=== PATIENT | female | born 1940 | race Hispanic/Latino ===

== ENCOUNTER 2019-12-20 13:19 | Outpatient (CLI) | payer OTHER, SELFPAY ==
--- NOTE | 2019-12-24 11:28 | WPDHOLTEREM ---
Holter/Event Monitor Holter/Event Monitor Date of procedure: 12/20/19 Procedure Type: test date 12/20/2019: Analysis date 12/23/2019: Read a 12/24/2019 48 hour Holter monitor Diagnosis: ventricular tachycardia Indications: ventricular tachycardia Image/Tracing Quality: good Finding: A total of 47 hours and 59 minutes were recorded and analyzed. Underlying normal sinus rhythm with heart rate variability between 46 and 88 beats per minute with an average heart rate of 61 beats per minute. First-degree AV block was noted. Intraventricular conduction delay was also seen. Longest RR interval of 2.2 seconds was noted. Frequent ventricular ectopy totaling 9106 beats. this consisted of 62 ventricular couplets, 8540 single PVCs, 8 beats were interpolated, 1 late Caden, 190 beats in a pattern of ventricular bigeminy and 281 beats in a pattern of ventricular trigeminy. It is rare supraventricular ectopy totaling 319 beats. This consisted of 4 atrial runs which totaled 15 beats with the longest run being for 5 beats. There is also 8 atrial couplets and 219 single PACs. No sustained runs of ventricular or supraventricular tachycardia. No atrial fibrillation 5 Dropped beats Four symptom events of rapid heart beat. These all correlated to sinus rhythm. On 2 occasions there was a PVC associated Conclusion: 1. Underlying normal sinus rhythm with average heart rate of 61 beats per minute. 2. First-degree AV block, intraventricular conduction delay noted 3. Frequent ventricular ectopy as detailed above but without sustained or nonsustained runs of ventricular tachycardia. 4. Low frequency supraventricular ectopy 5. four Symptom events correlate to sinus rhythm and on 2 occasions a PVC
== END 2019-12-20 13:20 | disposition home or self-care (01) ==
PROVIDERS: PCP Internal Medicine; Visit Provider Nurse Practitioner
DX: I47.2 Ventricular tachycardia (principal); I44.0 Atrioventricular block, first degree
CPT/HCPCS: 93225; 93226

== ENCOUNTER 2019-12-29 14:38 | Outpatient (CLI) | payer OTHER, SELFPAY ==
--- NOTE | ~2019-12-29 | DEXA_ITS ---
Bone Density Report Name: Kathy Clark Age: 79 Sex: Female Ethnicity: White Date of : 1940 Indication: postmenopausal; height loss; Referring Provider: SHELLY MONTIEL Study: Bone densitometry was performed. Exam Date: December 29, 2019 Accession number: [id number] Bone Density: Region BMD T-score Z-score Classification AP Spine (L1, L3) 1.017 0.0 2.7 Normal Femoral Neck (Left) 0.725 -1.1 1.2 Osteopenia Total Hip (Left) 0.957 0.1 2.2 Normal Total Hip Bilateral Avg 0.958 0.1 2.2 Normal Femoral Neck (Right) 0.743 -1.0 1.4 Normal Total Hip (Right) 0.957 0.1 2.2 Normal World Health Organization criteria for BMD impression classify patients as: Normal (T-score at or above -1.0), Osteopenia (T-score between -1.0 and -2.5), or Osteoporosis (T-score at or below -2.5). 10-year Fracture Risk(1): Major Osteoporotic Fracture 12% Hip Fracture 2.6% Reported Risk Factors: [place] (), Neck BMD=0.725, BMI=25.8 (1) FRAX(R) Version 3.08. Fracture probability calculated for an untreated patient. Fracture probability may be lower if the patient has received treatment. Clinical Information Provided by Patient: Patient maximum height was 62 Menopause Age: 51 No regular weight bearing exercise Drinks caffeinated beverages Onset of menses at age 12 Number of children 2 Impression: The patient has low bone mass, based on the Left Femoral Neck T-score. The patient has an estimated ten-year risk of hip fracture of 2.6% and an estimated ten-year risk of major fracture of 12%, based on the WHO FRAX algorithm. Discussion: BONE DENSITY IS LOW AT ONE OR MORE SKELETAL SITES. This patient's lowest T-score is low at one or more skeletal sites. It meets the World Health Organization's (WHO) criteria for ?low bone mass? (T-score between -1.0 and -2.5). The patient's 10-year risk of fracture as calculated by FRAX is less than the threshold where pharmacological therapy is recommended by the National Osteoporosis Foundation (NOF). However, all treatment decisions require clinical judgment and consideration of individual patient factors, including patient preferences, comorbidities, previous drug use, risk factors not captured in the FRAX model (e.g., frailty, falls, vitamin D deficiency, increased bone turnover, interval significant decline in bone density) and possible under or overestimation of fracture risk by FRAX. The patient should follow a healthful lifestyle (good nutrition with adequate calcium and vitamin D, and appropriate weight-bearing exercise). Follow-Up: Consider repeating this study in 2 to 3 years to reassess this patient's status, or sooner if there is some new clinical indication. Reported by: [facility] on 12/29/2019 3:08:00 PM. Reviewed, dictated and
--- NOTE | ~2019-12-29 | MM_ITS ---
EXAMINATION: MM screening [facility] BI w osito HISTORY: Screening mammogram TECHNIQUE: Craniocaudal and mediolateral oblique 3-D tomosynthesis images were obtained and synthetic 2-D images were generated. CAD analysis was submitted and interpreted. COMPARISON: 12/27/2018, 12/21/2017, 12/10/2016 bilateral digital screening mammogram examinations BREAST PARENCHYMAL COMPOSITION: There are scattered areas of fibroglandular density. FINDINGS: There is no evidence of suspicious mass, calcification, or architectural distortion to sugg est malignancy in either breast. There has been no suspicious interval change. IMPRESSION: 1. No mammographic evidence of malignancy. 2. Recommend routine screening mammography in one year. BI-RADS Category 1: Negative Reviewed, dictated and finalized at location A.
== END 2019-12-29 14:39 | disposition home or self-care (01) ==
LOC: ANHIMG 14:40
PROVIDERS: PCP Internal Medicine; Visit Provider Internal Medicine
DX: Z12.31 Encounter for screening mammogram for malignant neoplasm of breast (principal); Z78.0 Asymptomatic menopausal state; M85.852 Other specified disorders of bone density and structure, left thigh
CPT/HCPCS: 77063; 77067; 77080

== ENCOUNTER → 2021-01-22 14:34 | Outpatient (CLI) | payer OTHER, SELFPAY ==
--- NOTE | ~2021-01-22 | MM_ITS ---
EXAMINATION: MM screening [facility] BI w osito HISTORY: Screening mammogram TECHNIQUE: Craniocaudal and mediolateral oblique 3-D tomosynthesis images were obtained and synthetic 2-D images were generated. CAD analysis was submitted and interpreted. COMPARISON: 12/29/2019, 12/27/2018, 12/21/2017 BREAST PARENCHYMAL COMPOSITION: There are scattered areas of fibroglandular density. FINDINGS: There is no evidence of suspicious mass, calcification, or architectural distortion to sugg est malignancy in either breast. There has been no suspicious interval change. IMPRESSION: 1. No mammographic evidence of malignancy. 2. Recommend routine screening mammography while the patient remains in good health. BI-RADS Category 1: Negative Reviewed, dictated and finalized at location A. IMPRESSION: 1. No mammographic evidence of malignancy. 2. Recommend routine screening mammography while the patient remains in good he alth. BI-RADS Category 1: Negative
== END ==
PROVIDERS: PCP Internal Medicine; Visit Provider Internal Medicine
DX: Z12.31 Encounter for screening mammogram for malignant neoplasm of breast (principal)
CPT/HCPCS: 77063; 77067

== ENCOUNTER 2022-01-16 15:03 | Outpatient (CLI) | payer OTHER, SELFPAY ==
--- NOTE | ~2022-01-16 | US_ITS ---
EXAMINATION: US pelvic complete w TV DATE: 01/16/2022 15:48 INDICATION: Left ovarian cyst TECHNIQUE: Multiple transabdominal and endovaginal sonographic images of the pelvis were obtained. COMPARISON: CT, 01/26/2016 FINDINGS: The uterus measures 4.1 x 3.6 x 3.6 cm. The endometrial complex measures 2 mm. A small amou nt of fluid is present in the endometrial canal. The right ovary measures 1.5 x 1.1 x 1.8 cm. The lef t ovary is difficult to measure. There are adjacent simple cysts of the left ovary which measured 3.2 x 2.2 x 3.1 cm and 4.4 x 5.1 x 3.9 cm There is normal vascular flow in the ovaries. There is no free fluid in the pelvis. IMPRESSION: 1. Simple cysts of the left ovary with slight increase in size since the comparison CT. Given the int erval between examinations and mild change in size, findings are likely benign. 2. Small amount of fluid in the endometrial canal of unclear etiology or significance. Reviewed, dictated and finalized at location B. IMPRESSION: 1. Simple cysts of the left ovary with slight increase in size since the compar akin CT. Given the interval between examinations and mild change in size, findi ngs are likely benign. 2. Small amount of fluid in the endometrial canal of unclear etiology or signif icance.
== END 2022-01-16 15:04 | disposition home or self-care (01) ==
PROVIDERS: PCP Internal Medicine; Visit Provider Internal Medicine
DX: N83.202 Unspecified ovarian cyst, left side (principal)
CPT/HCPCS: 76830; 76856

== ENCOUNTER 2022-03-28 10:38 | Outpatient (CLI) | payer OTHER, SELFPAY ==
--- NOTE | ~2022-03-28 | DEXA_ITS ---
Bone Density Report Name: AYO SMITH Age: 81 Sex: Female Ethnicity: White Date of : 1940 Indication: postmenopausal; screening for osteoporosis; height loss; rheumatoid arthritis; Referring Provider: KASSI HARRISON Study: Bone densitometry was performed. Exam Date: March 28, 2022 Accession number: [id number] Bone Density: Region BMD T-score Z-score Classification AP Spine(L1-L4) 1.109 0.6 3.4 Normal Femoral Neck (Left) 0.780 -0.6 1.8 Normal Total Hip (Left) 0.963 0.2 2.4 Normal Femoral Neck (Right) 0.784 -0.6 1.9 Normal Total Hip (Right) 0.964 0.2 2.4 Normal Total Hip Mean 0.964 0.2 2.4 Normal World Health Organization criteria for BMD impression classify patients as: Normal (T-score at or above -1.0), Osteopenia (T-score between -1.0 and -2.5), or Osteoporosis (T-score at or below -2.5). 10-year Fracture Risk: FRAX not reported because: All T-scores for Spine Total, Hip Total, Femoral Neck at or above -1.0 Previous Exams: Region Exam Age BMD T-score BMD Change BMD Change Date g/cm2 vs Baseline vs Previous Total Hip(Left) 03/28/2022 81 0.963 0.2 0.007 (0.7%) 0.007 (0.7%) 12/29/2019 79 0.957 0.1 Total Hip(Right) 03/28/2022 81 0.964 0.2 0.007 (0.8%) 0.007 (0.8%) 12/29/2019 79 0.957 0.1 *Denotes significance at 95% confidence level, LSC for Total Hip = 0.027 g/cm2 Clinical Information Provided by Patient: Has rheumatoid arthritis Has used the following medications: Vitamin D, Calcium Patient maximum height was 62 Menopause Age: 51 No regular weight bearing exercise Drinks caffeinated beverages Onset of menses at age 12 Number of children 2 Impression: The patient has normal bone mass. No significant bone loss was observed. Discussion: BONE DENSITY IS ABOVE THE MINIMUM DESIRABLE LEVEL AT ALL SKELETAL SITES TESTED. This patient?s bone mineral density is above the minimum desirable level (T-score -1.0 or better) at all sites measured. The patient should follow a healthful lifestyle (good nutrition with adequate calcium and vitamin D, and appropriate weight-bearing exercise). Follow-Up: Consider repeating this study in 5 years or sooner if there is some new clinical indication. Reported by: [facility] on 03/28/2022 11:07:00 AM. Reviewed, dictated and finalized at location [facility]
--- NOTE | ~2022-03-28 | MM_ITS ---
EXAMINATION: MM screening josue BI w osito HISTORY: Screening mammogram TECHNIQUE: Craniocaudal and mediolateral oblique 3-D tomosynthesis images were obtained and synthetic 2-D images were generated. CAD analysis was submitted and interpreted. COMPARISON: 01/22/2021, 12/29/2019, 12/27/2018 bilateral screening mammogram examinations BREAST PARENCHYMAL COMPOSITION: There are scattered areas of fibroglandular density. FINDINGS: Occasional bilateral benign calcifications. There is no evidence of suspicious mass, calcif ication, or architectural distortion to suggest malignancy in either breast. There has been no suspic ious interval change. IMPRESSION: 1. No mammographic evidence of malignancy. 2. Recommend routine screening mammography in one year. BI-RADS Category 1: Negative Reviewed, dictated and finalized at location B.
== END 2022-03-28 10:39 | disposition home or self-care (01) ==
PROVIDERS: PCP Internal Medicine; Visit Provider Nurse Practitioner
DX: Z12.31 Encounter for screening mammogram for malignant neoplasm of breast (principal); Z78.0 Asymptomatic menopausal state
CPT/HCPCS: 77063; 77067; 77080

== ENCOUNTER → 2023-05-13 14:57 | Outpatient (CLI) | payer OTHER, SELFPAY ==
--- NOTE | ~2023-05-13 | MM_ITS ---
EXAMINATION: MM screening [facility] BI w osito HISTORY: Screening mammogram TECHNIQUE: Craniocaudal and mediolateral oblique 3-D tomosynthesis images were obtained and synthetic 2-D images were generated. CAD analysis was submitted and interpreted. COMPARISON: 03/28/2022, 01/22/2021, 12/29/2019 BREAST PARENCHYMAL COMPOSITION: There are scattered areas of fibroglandular density. FINDINGS: No suspicious mass, calcification, or architectural distortion are identified in either radha ast to suggest malignancy. There has been no suspicious interval change. IMPRESSION: 1. No mammographic evidence of malignancy. 2. Recommend routine screening mammography while the patient remains in good health. BI-RADS Category 1: Negative Reviewed, dictated and finalized at location A. IMPRESSION: 1. No mammographic evidence of malignancy. 2. Recommend routine screening mammography while the patient remains in good he alth. BI-RADS Category 1: Negative
== END ==
PROVIDERS: PCP Nurse Practitioner; Visit Provider Nurse Practitioner
DX: Z12.31 Encounter for screening mammogram for malignant neoplasm of breast (principal)
CPT/HCPCS: 77063; 77067

== ENCOUNTER 2023-07-14 17:57 | Observation (INO) | payer OTHER, SELFPAY ==
[2023-07-14] VITALS (17 sets, daily range): BP systolic 130–216; BP diastolic 56–81; PULSE 63–97; RESP 15–30; TEMP 36.1–37.3; O2SAT 92–99; BMI 23.8
--- NOTE | ~2023-07-14 | XR_ITS ---
EXAMINATION: XR chest 1V portable DATE: 07/14/2023 20:08 INDICATION: Cough. TECHNIQUE: A single frontal view of the chest was obtained. COMPARISON: Chest 2 views 11/23/2013 FINDINGS: Calcified right lung nodules and calcified right hilar lymph nodes are consistent with old granulomatous disease. No pleural effusion or pneumothorax. Cardiomegaly is noted. Median sternotomy wires are noted. There is a large sliding hiatal hernia. IMPRESSION: 1. Cardiomegaly. 2. Large sliding hiatal hernia. Reviewed, dictated and finalized at location E. E OFFICER
--- NOTE | 2023-07-14 19:09 | ECG_ITS ---
Measurements Intervals [place] Rate: 82 P: -32 SD: 317 QRS: 13 QRSD: 137 T: 32 QT: 398 QTc: 467 Interpretive Statements SINUS RHYTHM WITH MARKED FIRST DEGREE AV BLOCK RIGHT BUNDLE BRANCH BLOCK POSSIBLE LEFT VENTRICULAR HYPERTROPHY ABNORMAL ECG NO PREVIOUS ECG AVAILABLE FOR COMPARISON Electronically Signed On 07-15-2023 6:43:46 CHAIN OFFBEARER by Musa Cosby D.O.
--- NOTE | 2023-07-14 19:35 | ED.NAVMDI ---
HPI - Nausea/Vomiting/Diarrhea General Chief complaint: Nausea/Vomiting/Diarrhea <Carole Pina PA-C - Last Filed: 07/14/23 22:02> Stated complaint: n/v <Carole Pina PA-C - Last Filed: 07/14/23 22:02> Time Seen by Provider: 07/14/23 18:29 <Caroel Pina PA-C - Last Filed: 07/14/23 22:02> History of Present Illness HPI Narrative: 82-year-old female with history of hypertension, s/p aortic valve replacement, BOBBY who has not been noncompliant with CPAP, GERD, paroxysmal SVT follows with Dr. Shetty reports for evaluation for nausea and vomiting that started today. Patient states she developed cough and headache yesterday and went to [facility] care yesterday and tested positive for COVID. She was discharged home with Paxlovid and states she took her first dose today. Shortly after she began having nausea and multiple episodes of emesis. She also states that she fell out of her bed earlier today because she tried to stand up and felt lightheaded. She states she landed on her buttock. She did not hit her head or lose consciousness. She is denying injury from the fall including neck pain or back pain, hip or joint pain. The patient states that she also developed left-sided chest pain earlier which resolved after few hours. She does state that it radiated to her neck. She reports that she frequently gets chest pain that presents just like this daily when she tries to go to sleep. She is unsure the cause. States that the pain started while she was trying to take a nap earlier today. She denies aggravating or alleviating factors. Denies history of prior SC, hyperlipidemia, diabetes. She does report that your father the history of cardiac disease. She is not a smoker. Patient denies abdominal pain, dysuria or hematuria, shortness of breath, current chest pain, palpitations, syncope, fever, lower extremity edema. <Carole Pina PA-C - Last Filed: 07/14/23 22:02> Related Data Home medications: Home Medications Medication Instructions Recorded Confirmed metoprolol succinate 50 mg 50 mg PO DAILY 12/15/19 02/24/23 tablet,extended release 24 hr trazodone 50 mg tablet 50 mg PO DAILY 12/15/19 02/24/23 losartan 100 mg tablet 100 mg PO DAILY 06/27/21 02/24/23 escitalopram oxalate 10 mg tablet 20 mg PO DAILY 08/14/22 02/24/23 <Carole Pina PA-C - Last Filed: 07/14/23 22:02> Allergies/Adverse reactions: Allergies Allergy/AdvReac Type Severity Reaction Status Date / Time No Known Allergies Allergy Verified 02/24/23 14:10 <Carole Pina PA-C - Last Filed: 07/14/23 22:02> Review of Systems Review of Systems: CONSTITUTIONAL: Denies fever, chills, or sweats. EYES: Denies visual changes, redness, or discharge. ENT: See HPI CARDIOVASCULAR: See HPI RESPIRATORY: Denies cough or dyspnea. GASTROINTESTINAL: See HPI GENITOURINARY: Denies dysuria or hematuria. SKIN: Denies rash or itching. MUSCULOSKELETAL: Denies back pain, joint pain, or myalgia. NEUROLOGIC: Denies headache, numbness, or weakness. PSYCHIATRIC: Denies anxiety or depression. <Carole Pina PA-C - Last Filed: 07/14/23 22:02> [facility] Past Medical History Medical History: Medical History Heart palpitations Screening for breast cancer Screening for cardiovascular condition Screening for osteoporosis <Carole Pina PA-C - Last Filed: 07/14/23 22:02> Family History Family History: Family History Sibling Family history of Alzheimer's disease Diabetes mellitus Family history of diabetes mellitus in first degree relative Patient's sister is in good health Mother Carcinoma of colon Family history of malignant neoplasm Patient's mother is Father Acute myocardial infarction Patient's father is Other Depression
[2023-07-14] MEDS: ONDANSETRON INJ 4 MG/2 ML VIAL IV PUSH (19:40)
[2023-07-14] MEDS: SODIUM CHLORIDE 0.9% IV 1,000 ML 999 ML IV CONT (19:40)
[2023-07-14 20:05] LABS: Basophils Absolute Auto 0.1 K/mm3 (0.0-0.1); Basophils Percent Auto 0.6 % (0.2-1.2); Hematocrit 40.8 % (37.0-47.0); Hemoglobin 13.2 g/dL (12.0-15.0); Immature Granulocyte Absolute 0.03 K/mm3 (0.00-0.031); Immature Granulocyte Percent A 0.3 % (0-0.5); Lymphocytes Absolute Auto 0.46 K/mm3 (0.9-3.2); Lymphocytes Percent Auto 4.8 % (18.3-44.2); Mean Corpuscular HGB Conc 32.4 g/dl (32-36); Mean Corpuscular Hemoglobin 30.6 pg (26-34); Mean Corpuscular Volume 94.4 fl (80-100); Mean Platelet Volume 10.3 fl (7.4-10.4); Monocytes Absolute Auto 0.6 K/mm3 (0.1-0.6); Monocytes Percent Auto 5.9 % (2.6-8.5); Neutrophils Absolute Auto 8.4 K/mm3 (1.3-6.7); Neutrophils Percent Auto 88.4 % (45.5-73.1); Platelet Count Result 247 k/mm3 (150-375); Red Blood Count 4.32 M/mm3 (4.2-5.4); Red Cell Distribution Width 15.1 % (11.5-14.5); White Blood Count 9.5 K/mm3 (4.5-10.0)
[2023-07-14 20:08] LABS: INR 1.1; Prothrombin Time 14.5 Seconds (11.1-14.7)
[2023-07-14 20:09] LABS: Partial Thromboplastin Time 29.7 SECONDS (22.3-36.8)
[2023-07-14 20:11] LABS: Alanine Aminotransferase 85 U/L (6-35); Albumin Level 4.2 g/dL (3.5-5.1); Alkaline Phosphatase 142 U/L (38-126); Anion Gap 6 mmol/L (8-16); Aspartate Amino Transferase 95 U/L (14-36); Bilirubin,Total 0.7 mg/dL (0.2-1.3); Blood Urea Nitrogen 17 mg/dL (7-17); Carbon Dioxide 29 mmol/L (22-30); Chloride 98 mmol/L (98-107); Estimated CRCL calculation 39 ml/min; Estimated Glomerular Filt Rate > 60; Glucose 143 mg/dL (65-110); Lipase 92 U/L (23-300); Potassium 4.1 mmol/L (3.4-5.0); Sodium 133 mmol/L (137-145)
[2023-07-14 20:29] LABS: NT Pro B Type Natriuretic Pept 4460 pg/mL (19.9-100); Troponin I 0.038 ng/mL (0.000-0.034)
--- NOTE | 2023-07-14 20:42 | PC.NURSE ---
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 When asked why patient stated I don't know why . EDP ESTEE Lam notified.
[2023-07-14 20:44] LABS: Influenza A QL RT-PCR Negative (Negative); Influenza B QL RT-PCR Negative (Negative); RSV RNA, RT-PCR Negative (Negative); SARS-CoV-2 RNA PCR Positive (Negative)
--- NOTE | 2023-07-14 20:55 | PC.NURSE ---
Per EDP ESTEE Lam patient is okay to take 324mg chewable aspirin after speaking with the patient.
[2023-07-14 20:57] LABS: Appearance Urine Cloudy (Clear); Bacteria Urine None Seen /hpf; Bilirubin Urine Negative (Negative); Color Urine Yellow (Yellow); Glucose Urine UA Negative (Negative); Ketones Urine Trace mg/dL (Negative); Leukocyte Esterase Ur Negative LEU/UL (Negative); Nitrate Urine Negative (Negative); Non Pathogenic Casts 0-2; Protein Urine 2+ mg/dL (Negative); Specific Grav Ur 1.016 (1.001-1.035); Squamous Epithelial Cell Urine None seen /hpf (Few); WBC Urine 0-5 /hpf; pH Urine 6.5 (5.0-9.0)
[2023-07-14] MEDS: ASPIRIN 81 MG CHEWABLE TABLET 324 MG PO (20:57)
[2023-07-14 21:08] LABS: Magnesium 1.9 mg/dL (1.6-2.3)
[2023-07-14 21:08] LABS: Add Urine Microscopic? YES
--- NOTE | 2023-07-14 22:32 | ECG_ITS ---
Measurements Intervals [place] Rate: 68 P: -44 AR: 329 QRS: 1 QRSD: 138 T: 32 QT: 461 QTc: 492 Interpretive Statements SINUS RHYTHM WITH MARKED FIRST DEGREE AV BLOCK RIGHT BUNDLE BRANCH BLOCK LEFT VENTRICULAR HYPERTROPHY AND ST-T CHANGE ABNORMAL ECG COMPARED TO ECG 07/14/2023 19:35:54 NO SIGNIFICANT CHANGES Electronically Signed On 07-15-2023 6:49:57 STATISTICAL ENGINEER by Musa Cosby D.O.
--- NOTE | 2023-07-14 23:16 | PM.IMHP ---
H&P: HPI History of Present Illness Date/Time: 07/14/23 23:16 Chief Complaint: Patient brought to the ER for evaluation of her nausea and vomiting Narrative: 82 years old female with chronic medical issues brought to the ER for evaluation for nausea and vomiting. She developed cough and headache yesterday, went to the urgent care and diagnosed with COVID-19 and discharged home on Paxlovid. She took her 1st dose today and shortly after that she started having nausea with multiple episodes of vomiting. She felt lightheaded and went fell out of the bed earlier today. She did not hit her head or lose consciousness. She came to the ER for evaluation, workup was done which showed adequate oxygenation with O2 sats 95% on room air. She had some minimally elevated liver enzymes. COVID test was positive. She has minimally elevated cardiac enzymes 0.038, 0.050 and 0.038 which are flat. She denies any chest pain. She has been treated symptomatically and being placed under observation for close monitoring and medical management. Review of Systems Review of Systems: 14 systems were reviewed with pertinent positives and negatives per HPI. Except as documented in the HPI/progress notes, all other systems were reviewed and are negative. All systems reviewed & are unremarkable except as noted in HPI and below PMFSH Past Medical History Medical History Heart palpitations Screening for breast cancer Screening for cardiovascular condition Screening for osteoporosis Family History Family History Sibling Family history of Alzheimer's disease Diabetes mellitus Family history of diabetes mellitus in first degree relative Patient's sister is in good health Mother Carcinoma of colon Family history of malignant neoplasm Patient's mother is Father Acute myocardial infarction Patient's father is Other Depression Social History Social History Smoking status: Never smoker Second hand tobacco smoke exposure: No Alcohol intake: never Substance use: never Substance use type: does not use Do You Feel Safe in your Home?: Yes Lack of Transportation: No Lack of Food: Never True Current Housing: I Have Housing Concerned About Future Housing: No Difficulty Paying Gas/Electric Bills: No Difficulty Paying for Meds: No Currently Unemployed: No Education: High School Diploma/GED Difficulty w/ Childcare or Family Care: No Spiritual care concerns: No Meds Home Medications and Allergies Home Medications Medication Instructions Recorded Confirmed Type metoprolol succinate 50 mg 50 mg PO DAILY 12/15/19 07/15/23 History tablet,extended release 24 hr trazodone 50 mg tablet 50 mg PO HS PRN Sleep 12/15/19 07/15/23 History losartan 100 mg tablet 100 mg PO DAILY 06/27/21 07/15/23 History escitalopram oxalate 10 mg tablet 20 mg PO DAILY 08/14/22 07/15/23 History omeprazole 20 mg capsule,delayed See Rx Instructions .Route 03/16/23 07/15/23 Rx release .COMPLEX #90 caps Allergies Allergy/AdvReac Type Severity Reaction Status Date / Time No Known Allergies Allergy Verified 02/24/23 14:10 Vital Signs Vital Signs - 24 hr 07/14/23 18:02 07/14/23 18:18 07/14/23 18:19 Temperature 37.3 C Pulse Rate 97 93 Respiratory Rate 18 30 H Blood Pressure 169/67 H 216/81 H Pulse Oximetry 95 93 92 07/14/23 18:20 07/14/23 18:30 07/14/23 18:31 Temperature Pulse Rate 90 90 Respiratory Rate 26 H 30 H Blood Pressure 185/73 H Pulse Oximetry 93 93 92 07/14/23 18:45 07/14/23 18:46 07/14/23 19:00 Temperature Pulse Rate 90 87 88 Respiratory Rate 27 H 26 H 20 Blood Pressure 184/69 H Pulse Oximetry 92 92 94 07/14/23 19:01 07/14/23 20:08 07/14/23 21:08 Temperature 36.8 C Pulse Rate 95 78 87 R
--- NOTE | 2023-07-14 23:45 | ADMGEN ---
This patient, Kathy Clark, was admitted to IMU Room 204-01 at 2340. Patient/family oriented to hospital policies and general routines including ID bracelet, bed and alarms, visiting hours, pain management, procedures, bathroom and other care routines, personal items, smoking policy, room service/diet, and visiting hours. Information on how to activate the Rapid Response Team has been discussed. Patient/Family are encouraged to report perceived risks to care and to ask questions if they do not understand what they are told or what they should do.
[2023-07-15] VITALS (10 sets, daily range): BP systolic 149–163; BP diastolic 44–82; PULSE 52–74; RESP 15–18; TEMP 36.4–36.7; O2SAT 97–98
[2023-07-15 02:59] LABS: Troponin I 0.038 ng/mL (0.000-0.034)
[2023-07-15 07:21] LABS: Alanine Aminotransferase 69 U/L (6-35); Albumin Level 3.1 g/dL (3.5-5.1); Alkaline Phosphatase 111 U/L (38-126); Anion Gap 5 mmol/L (8-16); Aspartate Amino Transferase 65 U/L (14-36); Bilirubin,Total 0.4 mg/dL (0.2-1.3); Blood Urea Nitrogen 16 mg/dL (7-17); Calcium 8.2 mg/dL (8.4-10.2); Carbon Dioxide 26 mmol/L (22-30); Chloride 104 mmol/L (98-107); Estimated CRCL calculation 39 ml/min; Estimated Glomerular Filt Rate > 60; Glucose 115 mg/dL (65-110); Magnesium 1.9 mg/dL (1.6-2.3); Phosphorus 3.2 mg/dL (2.5-4.5); Potassium 4.3 mmol/L (3.4-5.0); Sodium 135 mmol/L (137-145)
[2023-07-15] MEDS: ESCITALOPRAM OXALATE 10 MG TABLET 20 MG PO (08:45)
[2023-07-15] MEDS: ASCORBIC ACID 500 MG TABLET PO (08:45)
[2023-07-15] MEDS: METOPROLOL SUCCINATE EXT REL 50 MG TABCR PO (08:45)
[2023-07-15] MEDS: THERAPEUTIC MULTIVITAMINS/MINERALS TAB (*BKC) 1 TABLET PO (08:45)
[2023-07-15] MEDS: CHOLECALCIFEROL 1,000 UNITS TABLET 1000 UNITS PO (08:45)
[2023-07-15] MEDS: LOSARTAN POTASSIUM 100 MG TABLET PO (08:45)
[2023-07-15] MEDS: ZINC SULFATE 220 MG CAPSULE PO (08:45)
[2023-07-15] MEDS: ENOXAPARIN 40 MG/0.4 ML SYRINGE SUB-Q (10:14)
--- NOTE | 2023-07-15 11:43 | PM.IMPN ---
Progress Note: A&P Assessment and Plan (1) COVID-19: Code(s): U07.1 - COVID-19 Status: Acute (2) Elevated troponin: Code(s): R79.89 - Other specified abnormal findings of blood chemistry Status: Acute (3) Transaminitis: Code(s): R74.01 - Elevation of levels of liver transaminase levels Status: Acute (4) BOBBY on CPAP: Code(s): G47.33 - Obstructive sleep apnea (adult) (pediatric); Z99.89 - Dependence on other enabling machines and devices Status: Acute (5) S/P aortic valve replacement with bioprosthetic valve: Code(s): Z95.3 - Presence of xenogenic heart valve Status: Acute (6) Gastroesophageal reflux disease without esophagitis: Code(s): K21.9 - Gastro-esophageal reflux disease without esophagitis Status: Acute (7) Essential (primary) hypertension: Onset Date: 04/12/19 Code(s): I10 - Essential (primary) hypertension Status: Acute Assessment and Plan: - continue Cardiac tele monitoring - continue COVID-19 isolation precautions -s/s nausea and vomiting have resolved was more likely to be caused by pharmacological effect of Paxlovid, continue to hold Paxlovid -Patient is clinically stable and not requiring oxygen hence do not qualify for dexamethasone or remdesivir -continue supplemental treatment with daily multivitamin, zinc, vitamin-C and vitamin-D -Patient s/p 1 L of IV hydration with normal saline in the ER -Patient has minimally elevated flat troponin levels which is likely due to myocardial demand ischemia caused by COVID 19 -EKGs reviewed from the ER which showed nonspecific STT wave changes -order troponin I level in a.m. - cardiology consulted -Monitor LFTs closely as outpatient Patient may be discharged with self quarantine instructions for 10 days, if she remains medically stable and her symptoms resolve after holding the Paxlovid. Subjective Date/time seen: 07/15/23 11:43 Interval history: Patient brought to the ER for evaluation of her nausea and vomiting Narrative: 82 years old female with chronic medical issues brought to the ER for evaluation for nausea and vomiting.? She developed cough and headache yesterday, went to the urgent care and diagnosed with COVID-19 and discharged home on Paxlovid.? She took her 1st dose today and shortly after that she started having nausea with multiple episodes of vomiting.? She felt lightheaded and went fell out of the bed earlier today.? She did not hit her head or lose consciousness.? She came to the ER for evaluation, workup was done which showed adequate oxygenation with O2 sats 95% on room air.? She had some minimally elevated liver enzymes.? COVID test was positive.? She has minimally elevated cardiac enzymes 0.038, 0.050 and 0.038 which are flat.? She denies any chest pain.? She has been treated symptomatically and being placed under observation for close monitoring and medical management. 07/15/2022: pt seen this a.m. she is in bed eating her breakfast, in no acute distress. She denies any events since her admission. She denies any sob, fever, chills, n/v. Pt states she continues to have ongoing weakness since she attempted to get out of bed at her home suffering a fall out of bed. She denies any loc or headache at this time. Review of Systems Review of Systems: 14 systems were reviewed with pertinent positives and negatives per HPI. Except as documented in the HPI/progress notes, all other systems were reviewed and are negative. All systems reviewed & are unremarkable except as noted in HPI and below Exam Narrative: PHYSICAL EXAMINATION: Vital signs: Please see the chart General physical exam: Patient lying in bed, pleasant and cooperative, appears to be tired and fatigued Head/eyes: Atraumatic, EOMI, PERRLA ENT: Moist mucous membranes, nasal passages clear Neck: Supple, full range of motion, trachea midline CVS: S1 + S2, regular rate and rhythm, no murmurs Respir
--- NOTE | 2023-07-15 12:17 | PM.CNCAR ---
Assessment and Plan Assessment and plan (1) COVID-19: Code(s): U07.1 - COVID-19 Status: Acute Assessment and Plan: Management as per primary team. (2) Elevated troponin: Code(s): R79.89 - Other specified abnormal findings of blood chemistry Status: Acute Assessment and Plan: Troponins are minimally elevated and flat. EKG without ischemic changes. Patient reports intermittent atypical likely noncardiac chest pain. Patient does mention occasional chest pain that occurs under her left breast at night when she is trying to sleep. Lasts for a few minutes and then self resolves. Gets worse if she lays on her side, but better when laying flat on back. No chest pain with exertion. Troponin elevation likely from demand ischemia, no evidence of acute coronary syndrome. No further workup indicated at this time. (3) Nausea & vomiting: Qualifiers: Vomiting type: unspecified Qualified Code(s): R11.2 - Nausea with vomiting, unspecified Code(s): R11.2 - Nausea with vomiting, unspecified Status: Acute Assessment and Plan: Likely side effect from Paxlovid, feels better since holding it and her nausea and vomiting have resolved. Plan Okay to discharge home from a cardiology standpoint. Outpatient follow up with Dr. Shetty. History of Present Illness History of Present Illness Consult date/time: 07/15/23 12:17 Requesting physician: Carole Pina PA-C Consult reason: Other (Elevated troponin) Reason For Visit: COVID, Elevated Troponin, Nausea and Vomiting Narrative: We are consulted for elevated troponin. This is an 82 year old female who follows with Dr. Shetty. She underwent Ross procedure in 1992 for treatment of aortic valve regurgitation. She has a history of problematic PVCs in the past, was on Sotalol but that discontinued because of prolonged QT intervals. At last visit in January 2023, she was doing well and has no active cardiac issues. She had an echocardiogram done prior to her visit that showed LVEF 50%, mild MR, and trivial AR. Patient presented to [facility] for evaluation of nausea and vomiting that started after taking Paxlovoid her COVID. Found to have initial elevated troponin at 0.038. EKG with sinus rhythm, RBBB, first degree AVB. COVID test positive here. Patient does mention occasional chest pain that occurs under her left breast at night when she is trying to sleep. Lasts for a few minutes and then self resolves. Gets worse if she lays on her side, but better when laying flat on back. No chest pain with exertion. She states she is feeling great this morning. Review of Systems Review of Systems: All systems reviewed & are unremarkable except as noted in HPI and below (HPI) [facility] Past Medical History Medical History Heart palpitations Screening for breast cancer Screening for cardiovascular condition Screening for osteoporosis Family History Family History Sibling Family history of Alzheimer's disease Diabetes mellitus Family history of diabetes mellitus in first degree relative Patient's sister is in good health Mother Carcinoma of colon Family history of malignant neoplasm Patient's mother is Father Acute myocardial infarction Patient's father is Other Depression Social History Social History Smoking status: Never smoker Second hand tobacco smoke exposure: No Alcohol intake: never Substance use: never Substance use type: does not use Do You Feel Safe in your Home?: Yes Lack of Transportation: No Lack of Food: Never True Current Housing: I Have Housing Concerned About Future Housing: No Difficulty Paying Gas/Electric Bills: No Difficulty Paying for Meds: No Currently Unemployed: No Education: [employer]
[2023-07-15 12:40] LABS: Glucose Point of Care 163 mg/dl (65-105)
--- NOTE | 2023-07-15 15:30 | PM.DS ---
DS: Admitting Diagnosis Discharge Date 07/15/2023 Admitting Diagnosis generalized weakness COVID 19 DS: Summary Hospital Course Reason for hospitalization: Patient brought to the ER for evaluation of her nausea and vomiting Hospital Course: 82 years old female with chronic medical issues brought to the ER for evaluation for nausea and vomiting.? She developed cough and headache yesterday, went to the urgent care and diagnosed with COVID-19 and discharged home on Paxlovid.? She took her 1st dose today and shortly after that she started having nausea with multiple episodes of vomiting.? She felt lightheaded and went fell out of the bed earlier today.? She did not hit her head or lose consciousness.? She came to the ER for evaluation, workup was done which showed adequate oxygenation with O2 sats 95% on room air.? She had some minimally elevated liver enzymes.? COVID test was positive.? She has minimally elevated cardiac enzymes 0.038, 0.050 and 0.038 which are flat.? She denies any chest pain.? She has been treated symptomatically and being placed under observation for close monitoring and medical management. Interval Hx: 07/15/2022:?pt seen this a.m. she is in bed eating her breakfast, in no acute distress. She denies any events since her admission. She denies any sob, fever, chills, n/v. Pt states she continues to have ongoing weakness since she attempted to get out of bed at her home suffering a fall out of bed. She denies any loc or headache at this time. Cardiology was consulted please see assessment and plan below: Consult date/time: 07/15/23? 12:17 Requesting physician: Carole Pina PA-C Consult reason: Other (Elevated troponin) Reason For Visit: COVID, Elevated Troponin, Nausea and Vomiting Narrative: We are consulted for elevated troponin. This is an 82 year old female who follows with Dr. Shetty. She underwent Ross procedure in 1992 for treatment of aortic valve regurgitation. She has a history of problematic PVCs in the past, was on Sotalol but that discontinued because of prolonged QT intervals. At last visit in January 2023, she was doing well and has no active cardiac issues. She had an echocardiogram done prior to her visit that showed LVEF 50%, mild MR, and trivial AR. Patient presented to [facility] ER for evaluation of nausea and vomiting that started after taking Paxlovoid her COVID. Found to have initial elevated troponin at 0.038. EKG with sinus rhythm, RBBB, first degree AVB. COVID test positive here. Patient does mention occasional chest pain that occurs under her left breast at night when she is trying to sleep. Lasts for a few minutes and then self resolves. Gets worse if she lays on her side, but better when laying flat on back. No chest pain with exertion. Time Spent with Patient Time attestation: Total time spent providing and/or coordinating discharge services: Exam Narrative: PHYSICAL EXAMINATION: Vital signs: Please see the chart General physical exam: Patient lying in bed, pleasant and cooperative, appears to be tired and fatigued Head/eyes: Atraumatic, EOMI, PERRLA ENT: Moist mucous membranes, nasal passages clear Neck: Supple, full range of motion, trachea midline CVS: S1 + S2, regular rate and rhythm, no murmurs Respiratory: Bilaterally fair air entry in both lung fisher, mild B/L crackles, symmetric chest expansion, + mild scattered rhonchi Abdomen: Soft, non-tender, bowel sounds +ve, no organomegaly Extremities: No clubbing, no cyanosis, no edema, no calf tenderness Musculoskeletal: Moves all, adequate range of motion, no muscle spasms Skin: Warm, dry, no jaundice, no cyanosis Neurological: Awake, alert, oriented x 3, cranial nerves II-XII intact, no focal neurological deficits Psychiatric: Normal mood, non suicidal DS: Data Data Completed and Pending Labs on day of discharge: Labs from last 24 hours 07/15/23 07/15/23 07/14/23 12:23 02:29 22:23 WBC RBC Hgb Hct MCV MCH
== END 2023-07-15 15:58 | disposition home or self-care (01) ==
LOC: ANHED 21:58 → ANHIMU 23:46
PROVIDERS: Admitting Provider Family Medicine; Emergency Provider Physician Assistant; PCP Nurse Practitioner; Visit Provider Nurse Practitioner
DX: U07.1 COVID-19 (principal); R79.89 Other specified abnormal findings of blood chemistry; R74.01 Elevation of levels of liver transaminase levels; E55.9 Vitamin D deficiency, unspecified; Z95.3 Presence of xenogenic heart valve; G47.33 Obstructive sleep apnea (adult) (pediatric); R07.9 Chest pain, unspecified; Z99.89 Dependence on other enabling machines and devices; Z91.199 Patient's noncompliance with other medical treatment and regimen due to unspecified reason; F42.9 Obsessive-compulsive disorder, unspecified; K21.9 Gastro-esophageal reflux disease without esophagitis; I10 Essential (primary) hypertension; F41.8 Other specified anxiety disorders; R32 Unspecified urinary incontinence; I47.19 Other supraventricular tachycardia; K44.9 Diaphragmatic hernia without obstruction or gangrene; R42 Dizziness and giddiness; W06.XXXA Fall from bed, initial encounter; Z79.899 Other long term (current) drug therapy; R94.31 Abnormal electrocardiogram [ECG] [EKG]; Z82.49 Family history of ischemic heart disease and other diseases of the circulatory system
CPT/HCPCS: 36415; 71045; 80053; 81001; 82948; 83690; 83735; 83880; 84100; 84484; 85025; 85610; 85730; 87637; 93005; 96361; 96374; 99285; A9270; G0378; J1650; J2405; J7030

== ENCOUNTER 2023-09-03 10:36 | Outpatient (CLI) | payer OTHER, SELFPAY ==
--- NOTE | ~2023-09-03 | US_ITS ---
EXAMINATION: US pelvic complete w TV DATE: 09/03/2023 12:15 INDICATION: History of left ovarian cysts TECHNIQUE: Multiple transabdominal and endovaginal sonographic images of the pelvis were obtained. COMPARISON: 01/16/2022 FINDINGS: The uterus measures 6.3 x 2.6 x 4.3 cm. The endometrial complex measures 4 mm. A small amou nt of fluid is again noted in the endometrial canal. The right ovary measures 1.9 x 1.5 x 2.6 cm. The left ovary measures 2.0 x 1.5 x 1.5 cm and contains a 2.4 cm simple cyst.. There is normal vascular flow in the ovaries. There is no free fluid in the pelvis. IMPRESSION: 1. Simple cyst of the left ovary with interval decrease in size, most consistent with a benign findin g. Reviewed, dictated and finalized at location B. NESS PROCESS REPRESENTATIVE IMPRESSION: 1. Simple cyst of the left ovary with interval decrease in size, most consisten t with a benign finding.
== END 2023-09-03 10:37 | disposition home or self-care (01) ==
PROVIDERS: PCP Nurse Practitioner; Visit Provider Nurse Practitioner
DX: N83.202 Unspecified ovarian cyst, left side (principal)
CPT/HCPCS: 76830; 76856

== ENCOUNTER 2024-09-20 16:13 | Outpatient (CLI) | payer OTHER, SELFPAY ==
[2024-09-20 16:51] LABS: Alanine Aminotransferase 16 U/L (6-35); Albumin Level 4.1 g/dL (3.5-5.1); Alkaline Phosphatase 75 U/L (38-126); Anion Gap 8 mmol/L (4-12); Aspartate Amino Transferase 28 U/L (14-36); Bilirubin,Total 0.5 mg/dL (0.2-1.3); Blood Urea Nitrogen 27 mg/dL (7-17); Calcium 9.1 mg/dL (8.4-10.2); Carbon Dioxide 26 mmol/L (22-30); Chloride 104 mmol/L (98-107); Estimated Glomerular Filt Rate 56; Glucose 83 mg/dL (65-110); Potassium 4.3 mmol/L (3.4-5.0); Sodium 138 mmol/L (137-145)
[2024-09-20 17:27] LABS: Vitamin D 25 Hydroxy 53.8 ng/mL
--- OUTSIDE RECORDS SUMMARY | 2024-09-20 17:47 | XMS_ITS | Referral Summary ---
Author Organization [facility] [address] Address [address] [place] [address] Care Team Providers Care Hand Fabric Cutter Name Role Phone Marshall Mejia NP Primary Care Provider Allergies No known active allergies Medications traZODone (DESYREL) 50 mg tablet Take 1 tablet (50 mg total) by mouth daily 06/08/2018 Active cholecalciferol (VITAMIN D-3) 2000 unit tablet Act jamee metoprolol XL (TOPROL-XL) 50 mg extended release tablet TAKE 1 TABLET BY MOUTH EVERY DAY 90 tablet 2 05/19/2024 Active losartan (COZAAR) 100 mg tablet TAKE 1 TABLET BY MOUTH EVERY DAY 90 tablet 2 06/05/2024 Active escitalopram (LEXAPRO) 20 mg tablet Take 1 tablet (20 mg total) by mouth daily 05/14/2024 Active red beet root-sour dave ext 250-0.5 mg tablet,chewable Take by mouth Active Active Problems Problem Noted Date Diagnosed Date BOBBY (obstructive sleep apnea) 07/18/2019 History of Ross procedure 07/18/2019 Moderate aortic valve regurgitation 07/18/2019 Status post Ross procedure 06/14/2018 Nonsustained ventricular tachycardia 01/28/2016 Palpitations 01/28/2016 Paroxysmal supraventricular tachycardia 01/28/20 16 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 Social History Tobacco Use Types Packs/Day Years Used Date Smoking Tobacco: Never Smokeless Tobacco: Never Tobacco Cessation:Counseling Given: Not Answered Alcohol Use Standard Drinks/Week Comments No 0 (1 standard drink = 0.6 oz pur e alcohol) Comments Unknown Sex and Gender Information Value Date Recorded Sex Assigned at Not on file Legal Sex Female 3:17 AM SOIL FERTILITY EXTENSION SPECIALIST Gender Identity Not on file Sexual Orientation Not on file Last Filed Vital Signs Vital Sign Reading Time Taken Comments Blood Pressure 156/50 06/13/2024 2:22 PM SOIL FERTILITY EXTENSION SPECIALIST Pulse 59 06/13/2024 2:22 PM SOIL FERTILITY EXTENSION SPECIALIST Temperature 36.6 C (97.8 F) 05/21/2020 1:52 PM SOIL FERTILITY EXTENSION SPECIALIST Respiratory Rate 15 01/25/2020 4:05 PM CDT Oxygen Saturation 98% 06/13/2024 2:22 PM SOIL FERTILITY EXTENSION SPECIALIST Inhaled Oxygen Concentration - - Weight 56.2 kg (124 lb) 06/13/2024 2:22 PM SOIL FERTILITY EXTENSION SPECIALIST Height 157.5 cm (5' 2 ) 06/13/2024 2:22 PM SOIL FERTILITY EXTENSION SPECIALIST Body Mass Index 22.68 06/13/2024 2:22 PM SOIL FERTILITY EXTENSION SPECIALIST Plan of Treatment Not on file Insurance [facility] Care Teams Hand Fabric Cutter Relationship Specialty Start Date End Date Marshall Mejia NP [address] [place] [address] PCP - General Nurse Practitioner 06/13/24
--- OUTSIDE RECORDS SUMMARY | 2024-09-20 17:47 | XMS_ITS | Clinical Summary ---
Author Organization [facility] [address] Address [address] [place] [address] Care Team Providers Care Auto Brake Technician Name Role Phone Marshall Mejia NP Primary [...] tachycardia 01/28/20 16 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 Family History Medical History Relation Name Comments Diabetes Brother Family history of diabetes mellitus - (Added by TW Conv) Diabetes Daughter Family history of diabetes mellitus - (Added by TW Conv) Heart attack Father Family history of heart attack - (Added by TW Conv) Diabetes Sister Family history of diabetes mellitus - (Added by TW Conv) Relation Name Status Comments Brother Daughter Father Sister Social History Tobacco Use Types Packs/Day Years Used Date Smoking Tobacco: Never Smokeless Tobacco: Never Tobacco Cessation:Counseling Given: Not Answered Alcohol Use Standard Drinks/Week Comments No 0 (1 standard drink = 0.6 oz pur e alcohol) Comments Unknown Sex and Gender Information Value Date Recorded Sex Assigned at Not on file Legal Sex Female 3:17 AM PATENT ENGINEER Gender Identity Not on file Sexual Orientation Not on file Obstetrics History Last Filed Vital Signs Vital Sign Reading Time Taken Comments Blood Pressure 156/50 06/13/2024 2:22 PM PATENT ENGINEER Pulse 59 06/13/2024 2:22 PM PATENT ENGINEER Temperature 36.6 C (97.8 F) 05/21/2020 1:52 PM PATENT ENGINEER Respiratory Rate 15 01/25/2020 4:05 PM CDT Oxygen Saturation 98% 06/13/2024 2:22 PM PATENT ENGINEER Inhaled Oxygen Concentration - - Weight 56.2 kg (124 lb) 06/13/2024 2:22 PM PATENT ENGINEER Height 157.5 cm (5' 2 ) 06/13/2024 2:22 PM PATENT ENGINEER Body Mass Index 22.68 06/13/2024 2:22 PM PATENT ENGINEER Plan of Treatment Health Maintenance Due Date Last Done Comments Depression Screening 1940 Osteoporosis Screening-Bone Density Scan 1940 DTaP/Tdap/Td Vaccine (1 - Tdap) 1949 Hepatitis B Screening 1956 Zoster Vaccine (1 of 2) 1988 Well Visit 65+ 12/14/2003 Pneumococcal vaccine 65+ (2 of 2 - PCV) 08/28/2015 08/28/2014, 06/01/2014 Fall Risk Assessment 01/24/2021 01/25/2020 Influenza Vaccine (#1) 2024 9, 03/29/2018, 05/03/2014, Additional history exists Insurance [facility] Care Teams Auto Brake Technician Relationship Specialty Start Date End Date Marshall Mejia NP [address] [place] [address] PCP - General Nurse Practitioner 06/13/24
--- OUTSIDE RECORDS SUMMARY | 2024-09-20 17:47 | XMS_ITS ---
Author Organization [facility] [employer] [facility] Address [address] [place] [address] Care Team Providers Care Stores Laborer Name Role Phone Roberto LUJAN, Marshall Primary Care Provider Jean Acuna Unavailable [phone] REASON FOR VISIT Medication Medications Medication SIG (Take, Route, Fr equency, Duration) Notes Start Date End Date Status traZODone HCl 50 MG PLEASE SEE ATTACHED FOR DETAILED DIRECTIONS Oral Once a day for 30 days Active Social History Sex Assigned At : Social History Observation Description Sex Assigned At Female Encounters Encounter Location Date Provider Diagnosis [facility] [address] [place] [address] 02/24/2024 Jean Cardona Major depressive disorder, recurrent severe without psychotic features F33.2 Assessments Encounter Date Diagnosis (ICD Code) Assessment Notes Treatment Notes Treatment Clinical Notes Section Notes 02/24/2024 Major depressive disorder, recurrent severe without psychotic features (ICD-10 - F33.2) Plan Of Treatment Medication Medication Name Sig Start Date Stop Date Notes traZODone HCl 50 MG PLEASE SEE ATTACHED FOR DETAILED DIRECTIONS Oral Once a day for 30 days Next Appt Details Provider Name:Jean Cardona , 01/01/2025 02:45:00 PM, [address], [address], [place], [address], Progress Notes * HUSEYIN SMITH:1940 ([age] yo F)Acc No.[id number]:02/24/2024 Patient: Genny AYO NAVARRO :1940 A ge:83 Y S ex:Female Address:[address] [place] [address], [place], [address] * Refills Refill traZODone HCl Tablet, 50 MG, Oral, PLEASE SEE ATTACHED FOR DETAILED DIRECTIONS, Once a day, 30 days, Refills=0 Subjective: * Chief Complaints: * M edication * Medical History: * Surgical History: * Hospitalization/Major Diagno stic Procedure: * Medications: Objective: * Vitals: * Physical Examination: Assessment: * Assessment: 1. M ajor depressive disorder, recurrent severe without psychotic features - F33.2 ? Plan: * Treatment: * Procedure Codes: * true * Date: Generated for Katarina navarrete/Marina/eTdarrylsmitting on: 0 09/20/2024 05:47 PM CDT
--- OUTSIDE RECORDS SUMMARY | 2024-09-20 17:48 | XMS_ITS ---
Author Organization [facility] [employer] [facility] Address [address] [place] [address] Care Team Providers Care Naturopath Name Role Phone Roberto LUJAN, [place] Primary Care Provider Jean Acuna Unavailable [phone] Allergies No Known Allergies REASON FOR VISIT follow up visit, medication evaluation Medications Medication SIG (Take, Route, Frequency, Duration) Notes Start Date End Date Status Escitalopram Oxalate 20 MG 1 tablet Oral Once a day for 90 days Active Donepezil HCl 5 MG 1 tablet at bedtime Orally Once a day for 30 day(s) 02/17/2024 Active Melatonin Fast Dissolve 10 MG 1 tablet every night Orally once a day for 30 days She needs melatonin. She can take it OTC melatonin also 02/17/2024 03/18/2024 Active Omeprazole 20 MG TAKE ONE CAPSULE BY MOUTH ONCE DAILY THIRTY MINUTES TO ONE HOUR BEFORE A MEAL Oral for 90 Days Active Losartan Potassium 100 MG TAKE 1 TABLET BY MOUTH EVERY DAY Oral for 90 Days Active Metoprolol Succinate ER 50 MG TAKE 1 TABLET BY MOUTH EVERY DAY Oral for 90 Days Active Social History Sex Assigned At : Social History Observation Description Sex Assigned At Female Problems Problem Type SNOMED Code ICD Code Onset Dates Problem Status W/U Status Risk Notes Problem Primary insomnia (4934710) Primary insomnia (F51.01) 4 Active confirmed Problem Obstructive sleep apnea syndrome (disorder) (08251921) Obstructive sleep apnea (adult) (pediatric) (G47.33) 4 Active confirmed Problem Severe recurrent major depression without psychotic features (42672226) Major depressive disorder, 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 Active confirmed Problem Mild cognitive disorder (799663751) MCI (mild cognitive impairment) (G31.84) Active confirmed Vital Signs Blood pressure systolic 166 mm Hg 02/17/20 24 Blood pressure diastolic 72 mm Hg 024 Heart Rate 85 /min 02/17/2024 Height 65.00 in 02/17/2024 Weight 126.8 lbs 02/17/2024 BMI 21.1 kg/m2 02/17/2024 Height-cm 165.10 cm 02/17/2024 Weight-kg 57.52 kg 02/17/2024 Encounters Encounter Location Date Provider Diagnosis [facility] [employer] [address] [place] [address] 02/17/2024 Jean Stone Primary insomnia F51.01 ; Major depressive disorder, recurrent severe without psychotic features F33.2 ; Obstructive sleep apnea (adult) (pediatric) G47.33 and MCI (mild cognitive impairment) G31.84 Assessments Encounter Date Diagnosis (ICD Code) Assessment Notes Treatment Notes Treatment Clinical Notes Section Notes 02/17/2024 Primary insomnia (ICD-10 - F51.01) Insomnia - Assessment: Patient reports difficulty staying asleep and waking up with palpitations. Currently taking half a dose of trazodone. Patient expresses interest in trying a different medication, preferably a natural option. - Plan: - Gradually taper off trazodone by taking it every other day for a week and then stopping. - Recommend trying [id number]-[id number] melatonin as a more natural sleep aid. - Follow up in 3-6 months or sooner if sleep issues persist. Palpitations - Assessment: Patient experiences palpitations at night, causing sleep disturbances. - Plan: - Monitor and document frequency and severity of palpitations. - Consider further evaluation if palpitations worsen or become more frequent. Elevated Blood Pressure - Assessment: Blood pressure measured at 166/72 during the visit. Patient attributes elevated blood pressure to rushing to the appointment. - Plan: - Encourage patient to monitor blood pressure regularly. - Assess potential causes of elevated blood pressure, such as stress or medication interactions. - Follow up in 3-6 months or sooner if blood pressure remains consistently elevated. Memory Concerns - Assessment: Patient expresses concern about memory and is interested in medication for memory improvement. Patient mentions hearing about medication for pre-dementia. - Plan: - Schedule memory testing for the patient. - Follow up with the patient one week after memory testing to discuss results and potential treatment options, such as Aricept. Acid Reflux - Assessment: Patient reports having acid reflux. - Plan: - Review current medications and lifestyle factors that may contribute to acid reflux. - Recommend lifestyle modifications and/or medication adjustments as needed. - Follow up in 3-6 months or sooner if acid reflux symptoms worsen. Tremors - Assessment: Patient experiences occasional shakiness, not all the time. - Plan: - Monitor and document frequency and severity of tremors. - Consider further evaluation if tremors worsen or become more frequent. - Follow up in 3-6 months or sooner if tremors persist or worsen. Medication Management - Assessment: Continue escitalopram (Acetalopram). - Plan: - Maintain current dosage of escitalopram. - Review medication list at next follow-up appointment. Social Situation - Assessment: Patient reports living with a mri technician, with family acceptance. Patient still drives. - Plan: - Continue to monitor patient's social support and independence. - Assess driving ability at future appointments if concerns arise. 02/17/2024 Major depressive disorder, recurrent severe without psychotic features (ICD-10 - F33.2) Insomnia - Assessment: Patient reports difficulty staying asleep and waking up with palpitations. Currently taking half a dose of trazodone. Patient expresses interest in trying a different medication, preferably a natural option. - Plan: - Gradually taper off trazodone by taking it every other day for a week and then stopping. - Recommend trying [id number] melatonin as a more natural sleep aid. - Follow up in 3-6 months or sooner if sleep issues persist. Palpitations - Assessment: Patient experiences palpitations at night, causing sleep disturbances. - Plan: - Monitor and document frequency and severity of palpitations. - Consider further evaluation if palpitations worsen or become more frequent. Elevated Blood Pressure - Assessment: Blood pressure measured at 166/72 during the visit. Patient attributes elevated blood pressure to rushing to the appointment. - Plan: - Encourage patient to monitor blood pressure regularly. - Assess potential causes of elevated blood pressure, such as stress or medication interactions. - Follow up in 3-6 months or sooner if blood pressure remains consistently elevated. Memory Concerns - Assessment: Patient expresses concern about memory and is interested in medication for memory improvement. Patient mentions hearing about medication for pre-dementia. - Plan: - Schedule memory testing for the patient. - Follow up with the patient one week after memory testing to discuss results and potential treatment options, such as Aricept. Acid Reflux - Assessment: Patient reports having acid reflux. - Plan: - Review current medications and lifestyle factors that may contribute to acid reflux. - Recommend lifestyle modifications and/or medication adjustments as needed. - Follow up in 3-6 months or sooner if acid reflux symptoms worsen. Tremors - Assessment: Patient experiences occasional shakiness, not all the time. - Plan: - Monitor and document frequency and severity of tremors. - Consider further evaluation if tremors worsen or become more frequent. - Follow up in 3-6 months or sooner if tremors persist or worsen. Medication Management - Assessment: Continue escitalopram (Acetalopram). - Plan: - Maintain current dosage of escitalopram. - Review medication list at next follow-up appointment. Social Situation - Assessment: Patient reports living with a mri technician, with family acceptance. Patient still drives. - Plan: - Continue to monitor patient's social support and independence. - Assess driving ability at future appointments if concerns arise. 02/17/2024 Obstructive sleep apnea (adult) (pediatric) (ICD-10 - G47.33) Insomnia - Assessment: Patient reports difficulty staying asleep and waking up with palpitations. Currently taking half a dose of trazodone. Patient expresses interest in trying a different medication, preferably a natural option. - Plan: - Gradually taper off trazodone by taking it every other day for a week and then stopping. - Recommend trying [id number]-pzu-[id number] melatonin as a more natural sleep aid. - Follow up in 3-6 months or sooner if sleep issues persist. Palpitations - Assessment: Patient experiences palpitations at night, causing sleep disturbances. - Plan: - Monitor and document frequency and severity of palpitations. - Consider further evaluation if palpitations worsen or become more frequent. Elevated Blood Pressure - Assessment: Blood pressure measured at 166/72 during the visit. Patient attributes elevated blood pressure to rushing to the appointment. - Plan: - Encourage patient to monitor blood pressure regularly. - Assess potential causes of elevated blood pressure, such as stress or medication interactions. - Follow up in 3-6 months or sooner if blood pressure remains consistently elevated. Memory Concerns - Assessment: Patient expresses concern about memory and is interested in medication for memory improvement. Patient mentions hearing about medication for pre-dementia. - Plan: - Schedule memory testing for the patient. - Follow up with the patient one week after memory testing to discuss results and potential treatment options, such as Aricept. Acid Reflux - Assessment: Patient reports having acid reflux. - Plan: - Review current medications and lifestyle factors that may contribute to acid reflux. - Recommend lifestyle modifications and/or medication adjustments as needed. - Follow up in 3-6 months or sooner if acid reflux symptoms worsen. Tremors - Assessment: Patient experiences occasional shakiness, not all the time. - Plan: - Monitor and document frequency and severity of tremors. - Consider further evaluation if tremors worsen or become more frequent. - Follow up in 3-6 months or sooner if tremors persist or worsen. Medication Management - Assessment: Continue escitalopram (Acetalopram). - Plan: - Maintain current dosage of escitalopram. - Review medication list at next follow-up appointment. Social Situation - Assessment: Patient reports living with a mri technician, with family acceptance. Patient still drives. - Plan: - Continue to monitor patient's social support and independence. - Assess driving ability at future appointments if concerns arise. 02/17/2024 MCI (mild cognitive impairment) (ICD-10 - G31.84) Insomnia - Assessment: Patient reports difficulty staying asleep and waking up with palpitations. Currently taking half a dose of trazodone. Patient expresses interest in trying a different medication, preferably a natural option. - Plan: - Gradually taper off trazodone by taking it every other day for a week and then stopping. - Recommend trying [id number]-kjb-[id number] melatonin as a more natural sleep aid. - Follow up in 3-6 months or sooner if sleep issues persist. Palpitations - Assessment: Patient experiences palpitations at night, causing sleep disturbances. - Plan: - Monitor and document frequency and severity of palpitations. - Consider further evaluation if palpitations worsen or become more frequent. Elevated Blood Pressure - Assessment: Blood pressure measured at 166/72 during the visit. Patient attributes elevated blood pressure to rushing to the appointment. - Plan: - Encourage patient to monitor blood pressure regularly. - Assess potential causes of elevated blood pressure, such as stress or medication interactions. - Follow up in 3-6 months or sooner if blood pressure remains consistently elevated. Memory Concerns - Assessment: Patient expresses concern about memory and is interested in medication for memory improvement. Patient mentions hearing about medication for pre-dementia. - Plan: - Schedule memory testing for the patient. - Follow up with the patient one week after memory testing to discuss results and potential treatment options, such as Aricept. Acid Reflux - Assessment: Patient reports having acid reflux. - Plan: - Review current medications and lifestyle factors that may contribute to acid reflux. - Recommend lifestyle modifications and/or medication adjustments as needed. - Follow up in 3-6 months or sooner if acid reflux symptoms worsen. Tremors - Assessment: Patient experiences occasional shakiness, not all the time. - Plan: - Monitor and document frequency and severity of tremors. - Consider further evaluation if tremors worsen or become more frequent. - Follow up in 3-6 months or sooner if tremors persist or worsen. Medication Management - Assessment: Continue escitalopram (Acetalopram). - Plan: - Maintain current dosage of escitalopram. - Review medication list at next follow-up appointment. Social Situation - Assessment: Patient reports living with a mri technician, with family acceptance. Patient still drives. - Plan: - Continue to monitor patient's social support and independence. - Assess driving ability at future appointments if concerns arise. 02/17/2024 Other referral to the local chapter or national office of the Alzheimer's Association ( ; http://www.alz. org), the Alzheimer's Disease Education and Referral Center (ADEAR) ( ; http://www.alexis. nih.gov/Alzheim ers/), Insomnia - Assessment: Patient reports difficulty staying asleep and waking up with palpitations. Currently taking half a dose of trazodone. Patient expresses interest in trying a different medication, preferably a natural option. - Plan: - Gradually taper off trazodone by taking it every other day for a week and then stopping. - Recommend trying [id number]-[id number] melatonin as a more natural sleep aid. - Follow up in 3-6 months or sooner if sleep issues persist. Palpitations - Assessment: Patient experiences palpitations at night, causing sleep disturbances. - Plan: - Monitor and document frequency and severity of palpitations. - Consider further evaluation if palpitations worsen or become more frequent. Elevated Blood Pressure - Assessment: Blood pressure measured at 166/72 during the visit. Patient attributes elevated blood pressure to rushing to the appointment. - Plan: - Encourage patient to monitor blood pressure regularly. - Assess potential causes of elevated blood pressure, such as stress or medication interactions. - Follow up in 3-6 months or sooner if blood pressure remains consistently elevated. Memory Concerns - Assessment: Patient expresses concern about memory and is interested in medication for memory improvement. Patient mentions hearing about medication for pre-dementia. - Plan: - Schedule memory testing for the patient. - Follow up with the patient one week after memory testing to discuss results and potential treatment options, such as Aricept. Acid Reflux - Assessment: Patient reports having acid reflux. - Plan: - Review current medications and lifestyle factors that may contribute to acid reflux. - Recommend lifestyle modifications and/or medication adjustments as needed. - Follow up in 3-6 months or sooner if acid reflux symptoms worsen. Tremors - Assessment: Patient experiences occasional shakiness, not all the time. - Plan: - Monitor and document frequency and severity of tremors. - Consider further evaluation if tremors worsen or become more frequent. - Follow up in 3-6 months or sooner if tremors persist or worsen. Medication Management - Assessment: Continue escitalopram (Acetalopram). - Plan: - Maintain current dosage of escitalopram. - Review medication list at next follow-up appointment. Social Situation - Assessment: Patient reports living with a mri technician, with family acceptance. Patient still drives. - Plan: - Continue to monitor patient's social support and independence. - Assess driving ability at future appointments if concerns arise. Plan Of Treatment Medication Medication Name Sig Start Date Stop Date Notes Escitalopram Oxalate 20 MG 1 tablet Oral Once a day for 90 days Donepezil HCl 5 MG 1 tablet at bedtime Orally Once a day for 30 day(s) 02/17/2024 traZODone HCl 50 MG PLEASE SEE ATTACHED FOR DETAILED DIRECTIONS Oral Once a day for 30 days Melatonin Fast Dissolve 10 MG 1 tablet every night Orally once a day for 30 days 02/17/2024 03/18/2024 She needs melatonin. She can take it OTC melatonin also Treatment Notes Assessment Notes Other referral to the local chapter or national office of the Alzheimer's Association ( ; http://www.alz.org), the Alzheimer's Disease Education and Referral Center (ADEAR) ( ; http://www.alexis.nih.gov/Alzheimers/), Next Appt Details Follow Up: Cans MCI, with me 1 to 2 week after cansmci test, Reason: to discuss cans mci test. Provider Name:Jean Martin Stone , 01/01/2025 02:45:00 PM, [address], [facility] [address], [place], [address], Progress Notes * DIVINA SMITHADOB:1940 ([age] yo F)Acc No.[id number]:02/17/2024 Patient: AYO KUMARI Provider: Edgar STONE MD :1940 A ge:83 Y S ex:Female Date:02/17/2024 Address:[address] [place], [place] [id number] Subjective: * Chief Complaints: * F ollow up visit, medication evaluation * HPI: D epression screening: Chief Complaint: The patient reports experiencing a decline in eyesight and hearing, along with waking up at night due to palpitations and having difficulty returning to sleep. They express a desire to explore alternative medications for sleep, aside from the current half dose of trazodone they are taking. Medication and Health Concerns: The patient is concerned about the number of medications they are taking, given their existing prescriptions for heart conditions and acid reflux. They also mention occasional shakiness and a blood pressure reading of 166/72 during the visit, attributed to rushing to the appointment. The patient is currently on citalopram (mistakenly referred to as acetalopram in the transcript) and expresses interest in trying a natural sleep aid like melatonin and a medication starting with pre- for potential memory issues, suggesting an interest in pre-dementia treatment options. Sleep Difficulties: The patient describes their main issue as staying asleep rather than falling asleep, indicating a specific area of concern regarding their sleep quality. Social and Family Dynamics: The patient lives with their significant other, with whom they share a companionship and love relationship, devoid of sexual relations. Both their family and their significant other's family are accepting and supportive of their relationship. The patient reports no issues with driving, family, or financial situations. Upcoming Appointments and Interests: The patient is interested in undergoing memory testing and has inquired about scheduling a follow-up appointment post-testing. They are open to exploring medications for memory improvement and have specifically mentioned an interest in a medication that starts with pre- . Overall Condition: The patient describes their overall condition as hanging in there and feels that everything is going down, indicating a general sense of decline in their well-being. The note is transcribed using speech recognition software. It is a reflection of a visit with the patient. It might have some inaccuracy, including medication names and transcribing errors, though efforts have been made to correct them. PHQ-9 L ittle interest or pleasure in doing things N ot at all, F eeling down, depressed, or hopeless N ot at all, T rouble falling or staying asleep, or sleeping too much M ore than half the days, F eeling tired or having little energy M ore than half the days, P oor appetite or overeating S everal days, F eeling bad about yourself or that you are a failure, or have let yourself or your family down N ot at all, Trouble concentrating on things, such as reading the newspaper or watching television S everal , M oving or speaking so slowly that other people could have noticed; or the opposite, being so fidgety or restless that you have been moving around a lot more than usual S everal days, T houghts that you would be better off or of hurting yourself in some way N ot at all, T otal Score 7 , I nterpretation M ild Depression. I ntervention D epression Screening Findings P ositsara, F ollow-Up for Depression M anagement of mental health treatment, S uicide Risk Assessment Performed , A dditional Evaluation for Depression P sychiatric interview and evaluation, N kuldeep of the standardized tool used for adult depression screening: P atient Health Questionnaire (PHQ-9). D epression Screening: JEN-7 (2018 Edition) F eeling nervous, anxious, or on edge?Several days, N ot being able to stop or control worrying S everal days, W orrying too much about different things S everal days, T rouble relaxing S everal days, B eing so restless that it is hard to sit still S everal days, B ecoming easily annoyed or irritable S everal days, F eeling afraid as if something awful might happen S everal ,?Total JEN-7 Score 7 , I nterpretation of Total ( 5 to 9) Mild. E lderly Maltreatment: Screening Questions P hysical Abuse - Infliction of physical injury by punching, beating, kicking, biting, burning, shaking, or other actions that result in harm. N o, E motional/Psychological Abuse - Willful infliction of mental or emotional anguish by threat, humiliation, isolation, or other verbal or nonverbal conduct. N o, N eglect - Involves attitudes of others or actions caused by others - such as family members, friends, or institutional caregivers - that have an extremely detrimental effect upon well-being N o, S exual Abuse - Forcing of undesired sexual behavior by one person upon another against their will who are either competent or unable to fully comprehend and/or give consent. This may also be called molestation. N o, E lder Abandonment - Desertion of an elderly person by an individual who has assumed responsibility for providing care for an elder, or by a person with physical custody of an elder No, F inancial or Material Exploitation - Taking advantage of a person for monetary gain or profit N o, U nwarranted Control - Controlling a person's ability to make choices about living situations, household finances, and medical care. N o. S creening Results R esults E lder maltreatment screen documented as negative, follow-up is not required (G8734). * Medical History: * Surgical History: * Hospitalization/Major Diagno stic Procedure: * Medications: T akingOmeprazole 20 MG Capsule Delayed Release TAKE ONE CAPSULE BY MOUTH ONCE DAILY THIRTY MINUTES TO ONE HOUR BEFORE A MEAL Oral Escitalopram Oxalate 20 MG Tablet TAKE 1 TABLET BY MOUTH EVERY MORNING Oral Losartan Potassium 100 MG Tablet TAKE 1 TABLET BY MOUTH EVERY DAY Oral Metoprolol Succinate ER 50 MG Tablet Extended Release 24 Hour TAKE 1 TABLET BY MOUTH EVERY DAY Oral traZODone HCl 50 MG Tablet PLEASE SEE ATTACHED FOR DETAILED DIRECTIONS Oral Taking Omeprazole 20 MG Capsule Delayed Release TAKE ONE CAPSULE BY MOUTH ONCE DAILY THIRTY MINUTES TO ONE HOUR BEFORE A MEAL Oral Taking Escitalopram Oxalate 20 MG Tablet TAKE 1 TABLET BY MOUTH EVERY MORNING Oral Taking Losartan Potassium 100 MG Tablet TAKE 1 TABLET BY MOUTH EVERY DAY Oral Taking Metoprolol Succinate ER 50 MG Tablet Extended Release 24 Hour TAKE 1 TABLET BY MOUTH EVERY DAY Oral Taking traZODone HCl 50 MG Tablet PLEASE SEE ATTACHED FOR DETAILED DIRECTIONS Oral DiscontinuedMetoprolol Succinate ER 50 MG Tablet Extended Release 24 Hour Oral traZODone HCl 50 MG Tablet Oral amLODIPine Besylate 5 MG Tablet Oral Escitalopram Oxalate 20 MG Tablet Oral Omeprazole 20 MG Capsule Delayed Release Oral Losartan Potassium 100 MG Tablet Oral Medication List reviewed and reconciled with the patientDiscontinued Metoprolol Succinate ER 50 MG Tablet Extended Release 24 Hour Oral Discontinued traZODone HCl 50 MG Tablet Oral Discontinued amLODIPine Besylate 5 MG Tablet Oral Discontinued Escitalopram Oxalate 20 MG Tablet Oral Discontinued Omeprazole 20 MG Capsule Delayed Release Oral Discontinued Losartan Potassium 100 MG Tablet Oral Medication List reviewed and reconciled with the patient * Allergies: N .K.D.A.no[Allergies Verified] Objective: * Vitals: B P:166/72mm Hg, HR:85/min, Wt:126.8lbs, Wt-k.52 kg, Ht: 65.00 in, Ht-cm: 165.10 cm, BMI:21.1Index, Body Surface Area: 1.62. * Examination: F unctional Assessment: Diaz Index of ADL S core: 6 1 point for independence, 0 for help. Physical Functioning P ersonal hygiene: including combing hair, brushing teeth, shaving, applying makeup, washing/drying face and hands (exclude baths and showers) I ndependentBathing: how client takes full-body bath/shower or sponge bath (exclude washing of back and hair). Includes how each part of body is bathed: arms, upper and lower legs, chest, abdomen, perineal area. (code for most dependent episode in last 7 days) I ndependentDressing upper body: how client dresses and undresses (street clothes, underwear) above the waist, includes prostheses, orthotics, fasteners, pullovers, etc. I ndependentEating - Including taking in food by any method, including tube feedings I ndependentToilet use: including using the toilet room or commode, bedpan, urinal, transferring on/off toilet, cleaning self after toilet use or incontinent episode, changing pad, managing any special devices required (ostomy or catheter), and adjusting clothes. I ndependentTransfer: including moving to and between surfaces--to/from bed, chair, wheelchair, standing position (excludes to/from bath/toilet) I ndependentContinence: I ndependent (1). 1 point for independence, 0 for help. P sychiatry: Dementia S afety concern screening for dangerousness to self and environment risks provided: Y esWhat action was taken to mitigate the risk? E ducation providedTopics discussed for environmental risks: H ome safety risks that could arise from cooking or smoking, Access to firearms or other weapons, Access to potentially dangerous chemicals and other materialsTopics discussed for dangerousness to self: M edication misuse, Financial mismanagementSafety concern mitigation recommendation provided: N ot requiredScreening Result: N egativeCaregiver education and support provided Y es. G eneral Examination: M ental Status Examination: Patient reports difficulty staying asleep, experiencing palpitations that awaken them during the night. Expressed concerns about memory impairment and requested medication for memory. Patient appears to be experiencing depressive symptoms and anxiety related to physical health declines. Patient requested to try a different medication for sleep, showing interest in natural options like melatonin. Patient agreed to memory testing. Vital Signs: Blood pressure: 166/72 (Patient attributed elevated blood pressure to rushing to appointment) Physical Examination: Patient reports decline in eyesight and hearing. Experiences palpitations, particularly at night. Reports symptoms of acid reflux and intermittent shakiness. Patient mentions taking medication for heart condition. Social History: Patient lives with significant other, describing the relationship as companionship and love without sexual relations. Family is accepting of the living arrangement. Patient is still able to drive. Current Medications: Trazodone (half dose) Escitalopram (mentioned as acetalopram in transcript) Unspecified heart medications. Assessment: * Assessment: 1. 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 2. 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 O bstructive sleep apnea (adult) (pediatric) - G47.33 4 . M CI (mild cognitive impairment) - G31.84 ? Insomnia - Assessment: Patient reports difficulty staying asleep and waking up with palpitations. Currently taking half a dose of trazodone. Patient expresses interest in trying a different medication, preferably a natural option. - Plan: - Gradually taper off trazodone by taking it every other day for a week and then stopping. - Recommend trying [id number] melatonin as a more natural sleep aid. - Follow up in 3-6 months or sooner if sleep issues persist. Palpitations - Assessment: Patient experiences palpitations at night, causing sleep disturbances. - Plan: - Monitor and document frequency and severity of palpitations. - Consider further evaluation if palpitations worsen or become more frequent. Elevated Blood Pressure - Assessment: Blood pressure measured at 166/72 during the visit. Patient attributes elevated blood pressure to rushing to the appointment. - Plan: - Encourage patient to monitor blood pressure regularly. - Assess potential causes of elevated blood pressure, such as stress or medication interactions. - Follow up in 3-6 months or sooner if blood pressure remains consistently elevated. Memory Concerns - Assessment: Patient expresses concern about memory and is interested in medication for memory improvement. Patient mentions hearing about medication for pre- dementia. - Plan: - Schedule memory testing for the patient. - Follow up with the patient one week after memory testing to discuss results and potential treatment options, such as Aricept. Acid Reflux - Assessment: Patient reports having acid reflux. - Plan: - Review current medications and lifestyle factors that may contribute to acid reflux. - Recommend lifestyle modifications and/or medication adjustments as needed. - Follow up in 3-6 months or sooner if acid reflux symptoms worsen. Tremors - Assessment: Patient experiences occasional shakiness, not all the time. - Plan: - Monitor and document frequency and severity of tremors. - Consider further evaluation if tremors worsen or become more frequent. - Follow up in 3-6 months or sooner if tremors persist or worsen. Medication Management - Assessment: Continue escitalopram (Acetalopram). - Plan: - Maintain current dosage of escitalopram. - Review medication list at next follow-up appointment. Social Situation - Assessment: Patient reports living with a mri technician, with family acceptance. Patient still drives. - Plan: - Continue to monitor patient's social support and independence. - Assess driving ability at future appointments if concerns arise. Plan: * Treatment: 2. M CI (mild cognitive impairment) Start Donepezil HCl Tablet, 5 MG, 1 tablet at bedtime, Orally, Once a day, 30 day(s), 30. ? 3. O thers Notes: referral to the local [facility] office of the Alzheimer's Association ( ;http://www.alz.org), the [facility] ([facility]) ( ;http://www.alexis.nih.gov/Alz mimi/), * Procedure Codes: 9 6127 BEHAV ASSMT W/SCORE & DOCD/STAND [id number] DOC ELDER MALTX SCR&DOC PLAN TM [id number] ELDER MALTX SCR DOC NEG NO F/U RQR * Preventive Medicine: Counseling: B P Management: F IRST HYPERTENSIVE BP READING FOLLOW-UP PLAN: _ ___, R EFERRAL TO ALTERNATIVE / PRIMARY CARE PROVIDER: R eferral to general medical service ____. * Follow Up: C ans MCI, with me 1 to 2 week after cansmci test (Reason: to discuss cans mci test.) * Billing Information: * Visit Code: 57573 OFFICE OUTPATIENT VISIT 25 MINUTES DETAILED HISTORY AND EXAM/MODERATE MEDICAL DECISION MAKING. * Procedure Codes: 76907 BEHAV ASSMT W/SCORE & DOCD/STAND INSTRUMENT. G8733 DOC ELDER MALTX SCR&DOC PLAN TM SCR. G8734 ELDER MALTX SCR DOC NEG NO F/U RQR. * Sign off status: Completed true * Provider: Edgar STONE MD Date: 0 02/17/2024 Generated for Katarina navarrete/Marina/Selmaitting on: 0 09/20/2024 05:47 PM CDT History and Physical Notes * HPI (History of Present Illness) Category Sub-Category Detail Notes Category Not es Depression screening PHQ-9 Little inte rest or pleasure in doing things: Not at all Feeling down, depressed, or hopeless: No t at all Trouble falling or staying a sleep, or sleeping too much: More than half the days Feeling tired or having little energy: M ore than half the days Poor appetite or overeating: Several day s Feeling bad about yourself o r that you are a failure, or have let yourself or your family down: Not at all Trouble concentrating on thi ngs, such as reading the newspaper or watching television: Several days Moving or speaking so slowly that other people could have noticed; or the opposite, being so fidgety or restless that you have been moving around a lot more than usual: Several days Thoughts that you would be b sabino off or of hurting yourself in some way: Not at all Total Score: 7 Interpretation: Mild Depression Intervention Depression Screening Findings: P ositve Follow-Up for Depression: Management of mental health treatment Suicide Risk Assessment Performed: Additional Evaluation for De pression: Psychiatric interview and evaluation Name of the standardized too l used for adult depression screening:: Patient Health Questionnaire (PHQ-9) Depression Screening JEN-7 (2018 Edition) Feelin g nervous, anxious, or on edge: Several days Not being able to stop or control worryi ng: Several days Worrying too much about different things : Several days Trouble relaxing: Several days Being so restless that it is hard to sit still: Several days Becoming easily annoyed or irritable: Se veral days Feeling afraid as if something awful mateo ht happen: Several days Total JEN-7 Score: 7 Interpretation of Total: (5 to 9) Mild Elderly Maltreatment Screening Questions Physica l Abuse - Infliction of physical injury by punching, beating, kicking, biting, burning, shaking, or other actions that result in harm.: No Emotional/Psychological Abus e - Willful infliction of mental or emotional anguish by threat, humiliation, isolation, or other verbal or nonverbal conduct.: No Neglect - Involves attitudes of others or actions caused by others - such as family members, friends, or institutional caregivers - that have an extremely detrimental effect upon well-being: No Sexual Abuse - Forcing of un desired sexual behavior by one person upon another against their will who are either competent or unable to fully comprehend and/or give consent. This may also be called molestation.: No Elder Abandonment - Desertio n of an elderly person by an individual who has assumed responsibility for providing care for an elder, or by a person with physical custody of an elder: No Financial or Material Exploi tation - Taking advantage of a person for monetary gain or profit: No Unwarranted Control - Contro lling a person's ability to make choices about living situations, household finances, and medical care.: No Screening Results Results: Elder maltr eatment screen documented as negative, follow-up is not required (G8734) Examination Category Sub-Category Detail Notes Category Not es Psychiatry Dementia Safety concern s creening for dangerousness to self and environment risks provided:: Yes What action was taken to mitigate the risk?: Education provided Topics discussed for environmental risks:: Home safety risks that could arise from cooking or smoking, Access to firearms or other weapons, Access to potentially dangerous chemicals and other materials Topics discussed for dangerousness to self:: Medication misuse, Financial mismanagement Safety concern mitigation recommendation provided:: Not required Screening Result:: Negative Caregiver education and support provided : Yes General Examination Mental Status Examination: Patient reports difficulty staying asleep, experiencing palpitations that awaken them during the night. Expressed concerns about memory impairment and requested medication for memory. Patient appears to be experiencing depressive symptoms and anxiety related to physical health declines. Patient requested to try a different medication for sleep, showing interest in natural options like melatonin. Patient agreed to memory testing. Vital Signs: Blood pressure: 166/72 (Patient attributed elevated blood pressure to rushing to appointment) Physical Examination: Patient reports decline in eyesight and hearing. Experiences palpitations, particularly at night. Reports symptoms of acid reflux and intermittent shakiness. Patient mentions taking medication for heart condition. Social History: Patient lives with significant other, describing the relationship as companionship and love without sexual relations. Family is accepting of the living arrangement. Patient is still able to drive. Current Medications: Trazodone (half dose) Escitalopram (mentioned as acetalopram in transcript) Unspecified heart medications Functional Assessment Diaz Index of ADL Score:: 6 1 point for independence, 0 for help 1 point for independence , 0 for help Physical Functioning Personal hygiene: i ncluding combing hair, brushing teeth, shaving, applying makeup, washing/drying face and hands (exclude baths and showers): Independent Bathing: how client takes fu ll-body bath/shower or sponge bath (exclude washing of back and hair). Includes how each part of body is bathed: arms, upper and lower legs, chest, abdomen, perineal area. (code for most dependent episode in last 7 days): Independent Dressing upper body: how cli ent dresses and undresses (street clothes, underwear) above the waist, includes prostheses, orthotics, fasteners, pullovers, etc.: Independent Eating - Including taking in food by any method, including tube feedings: Independent Toilet use: including using the toilet room or commode, bedpan, urinal, transferring on/off toilet, cleaning self after toilet use or incontinent episode, changing pad, managing any special devices required (ostomy or catheter), and adjusting clothes.: Independent Transfer: including moving t o and between surfaces--to/from bed, chair, wheelchair, standing position (excludes to/from bath/toilet): Independent Continence:: Independent (1)
--- OUTSIDE RECORDS SUMMARY | 2024-09-20 17:48 | XMS_ITS | Referral Summary ---
Author Organization [facility] Address [address] [place] [address] Care Team Providers Care Steam Pan Sponger Name Role Phone Doug Robledo MD Unavailable [phone] Michelet English DO Primary Care Provider [phone] Source Comments [facility],non-owned Affiliates and Associated Physician Practices is amultiple site organization consisting of ambulatory clinics and hospital sitesin [place], [place], [place] and [place]. This disclosure is being madepursuant to the Care Everywhere program and may not contain all information available regarding this patient. Last updated 18.[facility] Allergies No known active allergies Medications * Be aware that medications may not be up to date on this document. Alwaysverify current medications with the patient. Medication Sig Dispensed Refills Start Date End Date Status aspirin 81 MG tablet Take 81 mg by mouth once daily. Active FLUoxetine (PROZAC) 20 MG capsule 20 mg once daily 09/16/2014 Activ e Multiple Vitamins-Minerals (QC WOMENS DAILY MULTIVITAMIN PO) Active omeprazole (PRILOSEC) 20 MG capsule Take 20 mg by mouth daily before breakfast Active metoprolol succinate XL 24hr (TOPROL XL) 50 MG tablet Take 50 mg by mouth once daily Active losartan (COZAAR) 100 MG tablet Take 100 mg by mouth once daily Active TraZODone & Diet Manage Prod (TRAZAMINE) 50 MG MISC Active escitalopram (LEXAPRO) 5 MG tablet Take 5 mg by mouth once daily Active amLODIPine (NORVASC) 5 MG tablet TAKE ONE TABLET BY MOUTH ONCE DAILY 30 tablet 5 09/12/2018 Active Active Problems Problem Noted Date Diagnosed Date Mitral valve disorder 10/09/2015 Aortic valve disorder 03/29/2015 Overview (04/11/2015): Palpitations 03/29/2015 HTN (hypertension) 11/27/2013 Sleep apnea 11/27/2013 Anxiety 11/27/2013 Depression 11/27/2013 Social History Tobacco Use Types Packs/Day Years Used Date Smoking Tobacco: Never Smokeless Tobacco: Never Alcohol Use Standard Drinks/Week Comments Yes 0 (1 standard drink = 0.6 oz pur e alcohol) occ. Sex and Gender Information Value Date Recorded Sex Assigned at Not on file Gender Identity Not on file Sexual Orientation Not on file Last Filed Vital Signs Vital Sign Reading Time Taken Comments Blood Pressure 150/54 04/13/2018 2:24 PM CDT Pulse 64 04/13/2018 2:24 PM CDT Temperature - - Respiratory Rate - - Oxygen Saturation 98% 09/27/2017 3:28 PM CDT Inhaled Oxygen Concentration - - Weight 61.8 kg (136 lb 3.2 oz) 04/13/2018 2:24 P M CDT Height 157.5 cm (5' 2 ) 07/10/2016 12:05 PM [employer]IDE SAL[employer] SUPER[employer]OR Body Mass Index 24.91 07/10/2016 12:05 PM [employer] SAL[employer] SUPER[employer] Plan of Treatment Not on file Care Teams Steam Pan Sponger Relationship Specialty Start Date End Date Michelet English DO [address] [place] [address] PCP - General Internal Medicine 04/13/18 Doug Robledo MD [address] [place] [address] Cardiology 09/24/14
--- OUTSIDE RECORDS SUMMARY | 2024-09-20 17:48 | XMS_ITS | Continuity of Care Document ---
Author Organization [facility] Address [address] [place] [address] Phone Care Team Providers Care Bowling Ball Grader And Marker Name Role Phone Hina Badillo Unavailable Unavailable Advance Directives Directive Yes / No Effective Date File Name No Information Encounters Encounter Description Practice Location Reason(s) For Visit Diagnoses Date Provider Providers Copied on Encounter [facility], [address], [place], [place], [id number], [place] tel:[phone] [facility] No Information Sep-2 6-200 [address] Santamaria. [address] , [address], [place], [address], [place]. tel:[phone] Family History Family Member Type Diagnosis Age At Onset No Information Payers Payer name Insurance type Covered democrat ID Authoriza tion(s) No Information Social History Type Description Quantity Date Captured Comments Sex Female Smoking Status No Information Chief Complaint And Reason For Visit No Information Reason For Referral Reason For Referral No Information History Of Present Illness Encounter Date Complaint History Of Prese nt Illness No Information Functional Status Date Functional Assessmen t No Information Instructions Date Instruction Additional Infor mation No Information Assessments Type Assessment Date No Information Patient Care Teams Name Effective Dates (start - stop) Status Members No Information
--- OUTSIDE RECORDS SUMMARY | 2024-09-20 17:48 | XMS_ITS | Encounter Summary ---
Author Organization [facility] Address [address] [place] [address] Care Team Providers Care Roll Off Driver Name Role Phone Marshall Renner MD Primary Care Provider [phone] Doug Robledo MD Unavailable [phone] Tony Yee MD Primary Care Provider [phone] Michelet English DO Primary Care Provider [phone] Encounter Details Date Type Department Care Team (Late st Contact Info) Description 11/28/2013 [facility] Outpatient Visit EXTERNAL NON-[facility] DEPT Doug Robledo MD [address] [place] [address] Social History Tobacco Use Types Packs/Day Years Used Date Smoking Tobacco: Never Smokeless Tobacco: Never Alcohol Use Standard Drinks/Week Comments Yes 0 (1 standard drink = 0.6 oz pur e alcohol) occ. Sex and Gender Information Value Date Recorded Sex Assigned at Not on file Gender Identity Not on file Sexual Orientation Not on file documented as of this encounter Plan of Treatment Not on file documented as of this encounter Visit Diagnoses Not on filedocumented in this encounter Care Teams Roll Off Driver Relationship Specialty Start Date End Date Marshall Renner MD [address] [place] [address] PCP - General Internal Medicine 11/24/13 09/12/15 Tony Yee MD [address] [place] [address] PCP - General Internal Medicine 09/13/15 04/12/18 Michelet English DO [address] [place] [address] PCP - General Internal Medicine 04/13/18 Doug Robledo MD [address] [address] Cardiology 09/24/14 documented as of this encounter
--- OUTSIDE RECORDS SUMMARY | 2024-09-20 17:48 | XMS_ITS | Patient Health Record ---
Author Organization [facility] Address [address] [place] [address] Care Team Providers Care Rehabilitation Program Coordinator Name Role Phone Roberto LUJAN, Marshall Primary Care Provider Jean Acuna Unavailable [phone] Migration, Provider Unavailable Unavailable Allergies No Known Allergies Reason For Referral No Information Medications Medication SIG (Take, Route, Frequency, Duration) Notes Start Date End Date Status Escitalopram Oxalate 20 MG 1 tablet Oral Once a day for 90 days Active traZODone HCl 50 MG 1 tablet at bedtime Orally Once a day for 90 days As needed Active Losartan Potassium 100 MG TAKE 1 TABLET BY MOUTH EVERY DAY Oral for 90 Days Active Metoprolol Succinate ER 50 MG TAKE 1 TABLET BY MOUTH EVERY DAY Oral for 90 Days Active Immunizations Vaccine Route Administration Date Status Comme nts COVID-19, mRNA, LNP-S, PF, 5 0 mcg/0.5 mL Unknown 04/20/2023 Administered Influenza virus vaccine, quadrivalent (IIV4), split virus, 0.25 mL dosage Unknown 03/29/2018 Administered Influenza, high dose seasonal Unknown 03/29/2018 Admini stered Influenza, high dose seasonal Unknown 04/15/2019 Admini stered Influenza, seasonal, injecta ble, preservative free, 3 yrs and above Unknown 12/01/2013 Administered Influenza, unspecified formulation Unknown 05/03/2014 A dministered Moderna Covid-19 Vaccine 1st dose Unknown 08/20/2020 Ad ministered Moderna Covid-19 Vaccine 1st dose Unknown 09/17/2020 Ad ministered Moderna Covid-19 Vaccine 1st dose Unknown 03/22/2021 Ad ministered Moderna Covid-19 Vaccine 2nd dose Unknown 05/06/2022 Ad ministered Pfizer Biontech Covid-19 Vac cine 2nd dose Unknown 10/10/2021 Administered Pneumococcal polysaccharide PPV23 Unknown 06/01/2014 Ad ministered Pneumococcal polysaccharide PPV23 Unknown 08/28/2014 Ad ministered Pneumococcal polysaccharide PPV23 Unknown 04/11/2015 Ad ministered Zoster Unknown 11/10/2022 Administered Social History Sex Assigned At : Social History Observation Description Sex Assigned At Female Problems Problem Type SNOMED Code ICD Code Onset Dates Problem Status W/U Status Risk Notes Problem Severe recurrent major depression without psychotic features (84318933) Major depressive disorder, 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 Active confirmed Problem Primary insomnia (6816976) Primary insomnia (F51.01) 4 Active confirmed Problem Obstructive sleep apnea syndrome (disorder) (18216199) Obstructive sleep apnea (adult) (pediatric) (G47.33) 4 Active confirmed Problem Mild cognitive disorder (530783287) MCI (mild cognitive impairment) (G31.84) Active confirmed Problem Obstructive sleep apnea syndrome (42950062) BOBBY (obstructive sleep apnea) (G47.33) 0 Active confirmed Problem Hypertension (39898370) HTN (hypertension) (I10) 4 Active confirmed Vital Signs Heart Rate 66 /min 07/14/2024 Height-cm 165.10 cm 07/14/2024 Blood pressure diastolic 72 mm Hg 07/14/2024 Weight-kg 57.15 kg 07/14/2024 Height 65.00 in 07/14/2024 Blood pressure systolic 148 mm Hg 07/14/2024 Weight 126 lbs 07/14/2024 BMI 20.97 kg/m2 07/14/2024 Encounters Encounter Location Date Provider Diagnosis [facility] [address] [place] [address] 02/17/2024 Jean Brendan Primary insomnia F51.01 ; Major depressive disorder, recurrent severe without psychotic features F33.2 ; Obstructive sleep apnea (adult) (pediatric) G47.33 and MCI (mild cognitive impairment) G31.84 [facility] [address] [place] [address] 07/14/2024 Jean Brendan Primary insomnia F51.01 ; HTN (hypertension) I10 ; BOBBY (obstructive sleep apnea) G47.33 ; Major depressive disorder, recurrent severe without psychotic features F33.2 ; Obstructive sleep apnea (adult) (pediatric) G47.33 and MCI (mild cognitive impairment) G31.84 [facility] [place] [id number] [facility] [address] [facility] [address] [place] [address] 11/27/2023 Provider Migration [facility] [address] [facility] [address] [place] [address] 11/28/2023 Provider Migration [facility] [address] [facility] [address] [place] [address] 02/24/2024 Jean Cardona Major depressive disorder, recurrent severe without psychotic features F33.2 Assessments Encounter Date Diagnosis (ICD Code) Assessment Notes Treatment Notes Treatment Clinical Notes Section Notes 02/17/2024 Major depressive disorder, recurrent severe without [...] week and then stopping. - Recommend trying [id number]-uopmfrn melatonin as a more natural sleep aid. [...] - Assessment: Patient reports living with a university tutor, with family acceptance. Patient still drives. - Plan: - Continue to monitor patient's social support and independence. - Assess driving ability at future appointments if concerns arise. 02/17/2024 Primary insomnia (ICD-10 - F51.01) Insomnia - Assessment: Patient reports difficulty staying asleep and waking up with palpitations. Currently taking half a dose of trazodone. Patient expresses interest in trying a different medication, preferably a natural option. - Plan: - Gradually taper off trazodone by taking it every other day for a week and then stopping. - Recommend trying ztlw-hjy-ramqbeu melatonin as a more natural sleep aid. [...] - Assessment: Patient reports living with a university tutor, with family acceptance. Patient still drives. - Plan: - Continue to monitor patient's social support and independence. - Assess driving ability at future appointments if concerns arise. 02/24/2024 Major depressive disorder, recurrent severe without psychotic features (ICD-10 - F33.2) 07/14/2024 Primary insomnia (ICD-10 - F51.01) Cataracts and Declining Eyesight - Assessment: Patient reports difficulty driving, especially at night, due to vision problems. Patient mentions possible cataract issue and an unspecified eye condition. - Plan: - Continue current treatment with injections in the right eye. - Recommend follow-up with an office analyst for further evaluation and management. Hearing Loss - Assessment: Patient reports declining hearing. - Plan: - Recommend audiology evaluation for further assessment and potential hearing aid fitting. Fatigue - Assessment: Patient reports low energy and daytime tiredness. Patient mentions being tired during the day due to poor sleep. - Plan: - Encourage maintaining a regular sleep schedule and practicing good sleep hygiene. Depression and Anxiety - Assessment: Patient expresses concern about supporting her adult son and experiences excessive worry. Patient reports depression related to supporting her 60-year-old son. - Plan: - Continue Lexapro 20 mg daily for depression and anxiety. - Continue trazodone 50 mg at night for sleep, with the option to take half or one tablet as needed. - Consider referral to a therapist or counselor for additional support. Mild Cognitive Impairment - Assessment: Memory test score of 23. Patient expresses interest in trying natural remedies mentioned in doctor's videos. - Plan: - Patient declines memory medication (Aricept/Donepezil) at this time. - Encourage exploration of natural remedies, such as turmeric, and regular cognitive stimulation. Hypertension - Assessment: Patient is currently on medication for high blood pressure. - Plan: - Continue current antihypertensive medication regimen. - Monitor blood pressure regularly and follow up in 5-6 months. Follow-up - Plan: - Schedule a follow-up appointment in 5-6 months to reassess the patient's overall health and medication management. Living Situation - Assessment: Patient lives with a 92-year-old male university tutor who provides food and support. Patient assists with housework and receives care from university tutor. 07/14/2024 BOBBY (obstructive sleep apnea) (ICD-10 - G47.33) Cataracts and Declining Eyesight - Assessment: Patient reports difficulty driving, especially at night, due to vision problems. Patient mentions possible cataract issue and an unspecified eye condition. - Plan: - Continue current treatment with injections in the right eye. - Recommend follow-up with an office analyst for further evaluation and management. Hearing Loss - Assessment: Patient reports declining hearing. - Plan: - Recommend audiology evaluation for further assessment and potential hearing aid fitting. Fatigue - Assessment: Patient reports low energy and daytime tiredness. Patient mentions being tired during the day due to poor sleep. - Plan: - Encourage maintaining a regular sleep schedule and practicing good sleep hygiene. Depression and Anxiety - Assessment: Patient expresses concern about supporting her adult son and experiences excessive worry. Patient reports depression related to supporting her 60-year-old son. - Plan: - Continue Lexapro 20 mg daily for depression and anxiety. - Continue trazodone 50 mg at night for sleep, with the option to take half or one tablet as needed. - Consider referral to a therapist or counselor for additional support. Mild Cognitive Impairment - Assessment: Memory test score of 23. Patient expresses interest in trying natural remedies mentioned in doctor's videos. - Plan: - Patient declines memory medication (Aricept/Donepezil) at this time. - Encourage exploration of natural remedies, such as turmeric, and regular cognitive stimulation. Hypertension - Assessment: Patient is currently on medication for high blood pressure. - Plan: - Continue current antihypertensive medication regimen. - Monitor blood pressure regularly and follow up in 5-6 months. Follow-up - Plan: - Schedule a follow-up appointment in 5-6 months to reassess the patient's overall health and medication management. Living Situation - Assessment: Patient lives with a 92-year-old male university tutor who provides food and support. Patient assists with housework and receives care from university tutor. 07/14/2024 HTN (hypertension) (ICD-10 - I10) Cataracts and Declining Eyesight - Assessment: Patient reports difficulty driving, especially at night, due to vision problems. Patient mentions possible cataract issue and an unspecified eye condition. - Plan: - Continue current treatment with injections in the right eye. - Recommend follow-up with an office analyst for further evaluation and management. Hearing Loss - Assessment: Patient reports declining hearing. - Plan: - Recommend audiology evaluation for further assessment and potential hearing aid fitting. Fatigue - Assessment: Patient reports low energy and daytime tiredness. Patient mentions being tired during the day due to poor sleep. - Plan: - Encourage maintaining a regular sleep schedule and practicing good sleep hygiene. Depression and Anxiety - Assessment: Patient expresses concern about supporting her adult son and experiences excessive worry. Patient reports depression related to supporting her 60-year-old son. - Plan: - Continue Lexapro 20 mg daily for depression and anxiety. - Continue trazodone 50 mg at night for sleep, with the option to take half or one tablet as needed. - Consider referral to a therapist or counselor for additional support. Mild Cognitive Impairment - Assessment: Memory test score of 23. Patient expresses interest in trying natural remedies mentioned in doctor's videos. - Plan: - Patient declines memory medication (Aricept/Donepezil) at this time. - Encourage exploration of natural remedies, such as turmeric, and regular cognitive stimulation. Hypertension - Assessment: Patient is currently on medication for high blood pressure. - Plan: - Continue current antihypertensive medication regimen. - Monitor blood pressure regularly and follow up in 5-6 months. Follow-up - Plan: - Schedule a follow-up appointment in 5-6 months to reassess the patient's overall health and medication management. Living Situation - Assessment: Patient lives with a 92-year-old male university tutor who provides food and support. Patient assists with housework and receives care from university tutor. 07/14/2024 Major depressive disorder, recurrent severe without psychotic features (ICD-10 - F33.2) Cataracts and Declining Eyesight - Assessment: Patient reports difficulty driving, especially at night, due to vision problems. Patient mentions possible cataract issue and an unspecified eye condition. - Plan: - Continue current treatment with injections in the right eye. - Recommend follow-up with an office analyst for further evaluation and management. Hearing Loss - Assessment: Patient reports declining hearing. - Plan: - Recommend audiology evaluation for further assessment and potential hearing aid fitting. Fatigue - Assessment: Patient reports low energy and daytime tiredness. Patient mentions being tired during the day due to poor sleep. - Plan: - Encourage maintaining a regular sleep schedule and practicing good sleep hygiene. Depression and Anxiety - Assessment: Patient expresses concern about supporting her adult son and experiences excessive worry. Patient reports depression related to supporting her 60-year-old son. - Plan: - Continue Lexapro 20 mg daily for depression and anxiety. - Continue trazodone 50 mg at night for sleep, with the option to take half or one tablet as needed. - Consider referral to a therapist or counselor for additional support. Mild Cognitive Impairment - Assessment: Memory test score of 23. Patient expresses interest in trying natural remedies mentioned in doctor's videos. - Plan: - Patient declines memory medication (Aricept/Donepezil) at this time. - Encourage exploration of natural remedies, such as turmeric, and regular cognitive stimulation. Hypertension - Assessment: Patient is currently on medication for high blood pressure. - Plan: - Continue current antihypertensive medication regimen. - Monitor blood pressure regularly and follow up in 5-6 months. Follow-up - Plan: - Schedule a follow-up appointment in 5-6 months to reassess the patient's overall health and medication management. Living Situation - Assessment: Patient lives with a 92-year-old male university tutor who provides food and support. Patient assists with housework and receives care from university tutor. 02/17/2024 Obstructive sleep apnea (adult) (pediatric) (ICD-10 - G47.33) Insomnia - Assessment: Patient reports difficulty staying asleep and waking up with palpitations. Currently taking half a dose of trazodone. Patient expresses interest in trying a different medication, preferably a natural option. - Plan: - Gradually taper off trazodone by taking it every other day for a week and then stopping. - Recommend trying kgon-nal-kdojpkf melatonin as a more natural sleep aid. [...] - Assessment: Patient reports living with a university tutor, with family acceptance. Patient still drives. - [...] week and then stopping. - Recommend trying xrnk-wir-hzirreq melatonin as a more natural sleep aid. [...] - Assessment: Patient reports living with a university tutor, with family acceptance. Patient still drives. - Plan: - Continue to monitor patient's social support and independence. - Assess driving ability at future appointments if concerns arise. 07/14/2024 Obstructive sleep apnea (adult) (pediatric) (ICD-10 - G47.33) Cataracts and Declining Eyesight - Assessment: Patient reports difficulty driving, especially at night, due to vision problems. Patient mentions possible cataract issue and an unspecified eye condition. - Plan: - Continue current treatment with injections in the right eye. - Recommend follow-up with an office analyst for further evaluation and management. Hearing Loss - Assessment: Patient reports declining hearing. - Plan: - Recommend audiology evaluation for further assessment and potential hearing aid fitting. Fatigue - Assessment: Patient reports low energy and daytime tiredness. Patient mentions being tired during the day due to poor sleep. - Plan: - Encourage maintaining a regular sleep schedule and practicing good sleep hygiene. Depression and Anxiety - Assessment: Patient expresses concern about supporting her adult son and experiences excessive worry. Patient reports depression related to supporting her 60-year-old son. - Plan: - Continue Lexapro 20 mg daily for depression and anxiety. - Continue trazodone 50 mg at night for sleep, with the option to take half or one tablet as needed. - Consider referral to a therapist or counselor for additional support. Mild Cognitive Impairment - Assessment: Memory test score of 23. Patient expresses interest in trying natural remedies mentioned in doctor's videos. - Plan: - Patient declines memory medication (Aricept/Donepezil) at this time. - Encourage exploration of natural remedies, such as turmeric, and regular cognitive stimulation. Hypertension - Assessment: Patient is currently on medication for high blood pressure. - Plan: - Continue current antihypertensive medication regimen. - Monitor blood pressure regularly and follow up in 5-6 months. Follow-up - Plan: - Schedule a follow-up appointment in 5-6 months to reassess the patient's overall health and medication management. Living Situation - Assessment: Patient lives with a 92-year-old male university tutor who provides food and support. Patient assists with housework and receives care from university tutor. 07/14/2024 MCI (mild cognitive impairment) (ICD-10 - G31.84) Cataracts and Declining Eyesight - Assessment: Patient reports difficulty driving, especially at night, due to vision problems. Patient mentions possible cataract issue and an unspecified eye condition. - Plan: - Continue current treatment with injections in the right eye. - Recommend follow-up with an office analyst for further evaluation and management. Hearing Loss - Assessment: Patient reports declining hearing. - Plan: - Recommend audiology evaluation for further assessment and potential hearing aid fitting. Fatigue - Assessment: Patient reports low energy and daytime tiredness. Patient mentions being tired during the day due to poor sleep. - Plan: - Encourage maintaining a regular sleep schedule and practicing good sleep hygiene. Depression and Anxiety - Assessment: Patient expresses concern about supporting her adult son and experiences excessive worry. Patient reports depression related to supporting her 60-year-old son. - Plan: - Continue Lexapro 20 mg daily for depression and anxiety. - Continue trazodone 50 mg at night for sleep, with the option to take half or one tablet as needed. - Consider referral to a therapist or counselor for additional support. Mild Cognitive Impairment - Assessment: Memory test score of 23. Patient expresses interest in trying natural remedies mentioned in doctor's videos. - Plan: - Patient declines memory medication (Aricept/Donepezil) at this time. - Encourage exploration of natural remedies, such as turmeric, and regular cognitive stimulation. Hypertension - Assessment: Patient is currently on medication for high blood pressure. - Plan: - Continue current antihypertensive medication regimen. - Monitor blood pressure regularly and follow up in 5-6 months. Follow-up - Plan: - Schedule a follow-up appointment in 5-6 months to reassess the patient's overall health and medication management. Living Situation - Assessment: Patient lives with a 92-year-old male university tutor who provides food and support. Patient assists with housework and receives care from university tutor. 02/17/2024 Other referral to the local chapter or national office of the Alzheimer's Association (2-474-115-761 0; http://www.alz .org), the Alzheimer's Disease Education and Referral Center (ADEAR) (4-403-786-438 0; http://www.alexis .nih.gov/Alzhe imers/), Insomnia - Assessment: Patient reports difficulty staying asleep and waking up with palpitations. Currently taking half a dose of trazodone. Patient expresses interest in trying a different medication, preferably a natural option. - Plan: - Gradually taper off trazodone by taking it every other day for a week and then stopping. - Recommend trying bigg-cgc-hhtrbex melatonin as a more natural sleep aid. [...] - Assessment: Patient reports living with a university tutor, with family acceptance. Patient still drives. - Plan: - Continue to monitor patient's social support and independence. - Assess driving ability at future appointments if concerns arise. 07/14/2024 Other referral to the local chapter or national office of the Alzheimer's Association (6-664-840-179 0; http://www.alz .org), the Alzheimer's Disease Education and Referral Center (ADEAR) (6-940-530-438 0; http://www.alexis .nih.gov/Alzhe imers/), Cataracts and Declining Eyesight - Assessment: Patient reports difficulty driving, especially at night, due to vision problems. Patient mentions possible cataract issue and an unspecified eye condition. - Plan: - Continue current treatment with injections in the right eye. - Recommend follow-up with an office analyst for further evaluation and management. Hearing Loss - Assessment: Patient reports declining hearing. - Plan: - Recommend audiology evaluation for further assessment and potential hearing aid fitting. Fatigue - Assessment: Patient reports low energy and daytime tiredness. Patient mentions being tired during the day due to poor sleep. - Plan: - Encourage maintaining a regular sleep schedule and practicing good sleep hygiene. Depression and Anxiety - Assessment: Patient expresses concern about supporting her adult son and experiences excessive worry. Patient reports depression related to supporting her 60-year-old son. - Plan: - Continue Lexapro 20 mg daily for depression and anxiety. - Continue trazodone 50 mg at night for sleep, with the option to take half or one tablet as needed. - Consider referral to a therapist or counselor for additional support. Mild Cognitive Impairment - Assessment: Memory test score of 23. Patient expresses interest in trying natural remedies mentioned in doctor's videos. - Plan: - Patient declines memory medication (Aricept/Donepezil) at this time. - Encourage exploration of natural remedies, such as turmeric, and regular cognitive stimulation. Hypertension - Assessment: Patient is currently on medication for high blood pressure. - Plan: - Continue current antihypertensive medication regimen. - Monitor blood pressure regularly and follow up in 5-6 months. Follow-up - Plan: - Schedule a follow-up appointment in 5-6 months to reassess the patient's overall health and medication management. Living Situation - Assessment: Patient lives with a 92-year-old male university tutor who provides food and support. Patient assists with housework and receives care from university tutor. Plan Of Treatment Next Appt Details Provider Name:Jean Cardona , 01/01/2025 02:45:00 PM, [facility], [facility] [address], [place], [address], Insurance Providers Payer Name Payer Address Payer Phone Subscriber Number Group Number Insured Name Patient Relationship to Insured Coverage Start Date Coverage End Date [employer] Medicare Replacement/ Advantage - Hmo [address] [place] [phone] [id number] AYO SMITH Self - patient is the insured Medical (General) History Medical History History ICD Code Problems: Chronic fatigue syndrome Chronic post-traumatic stress disorder Generalized anxiety disorder Hoarding Obsessive-compulsive disorder Obstructive sleep apnea syndrome Primary insomnia Recurrent major depressive episodes, mod erate Severe recurrent major depression withou t psychotic features ,
--- OUTSIDE RECORDS SUMMARY | 2024-09-20 17:48 | XMS_ITS | Encounter Summary ---
Author Organization [facility] Address [address] [place] [address] Care Team Providers Care Fuels Sales Representative Name Role Phone Marshall Renner MD Primary Care Provider [phone] Doug Robledo MD Unavailable [phone] Tony Yee MD Primary Care Provider [phone] Michelet English DO Primary Care Provider [phone] Encounter Details Date Type Department Care Team (Late st Contact Info) Description 04/02/2014 [facility] Outpatient Visit [facility] [address] [place] [address] [address] [place] [address] Doug Robledo MD [address] [place] [address] [address] [place] [address] Social History Tobacco Use Types Packs/Day Years [...] on filedocumented in this encounter Care Teams Fuels Sales Representative Relationship Specialty Start Date End Date Marshall Renner MD [address] [place] [address] PCP - General Internal Medicine 11/24/13 09/12/15 Tony Yee MD [address] [facility] [address] [place] [address] PCP - General Internal Medicine 09/13/15 04/12/18 Michelet English DO [address] [place] [address] PCP - General Internal Medicine 04/13/18 Doug Robledo MD [address] [facility] [address] [place] [address] Cardiology 09/24/14 documented as of this encounter
--- OUTSIDE RECORDS SUMMARY | 2024-09-20 17:48 | XMS_ITS ---
Author Organization [facility] Address [address] [place] [address] Care Team Providers Care Soil Biology Teacher Name Role Phone Roberto LUJAN, Marshall Primary Care Provider Jean Acuna Unavailable [phone] Allergies No Known Allergies REASON FOR VISIT Follow up, Depression screening positive, MIPS with Diagnosis of HTN, Functional status reviewed, MIPS BP exclusion due to established diagnosis of HTN Medications Medication SIG (Take, Route, Frequency, Duration) Notes Start Date End Date Status Escitalopram Oxalate 20 MG 1 tablet Oral Once a day for 90 days Active Losartan Potassium 100 MG TAKE 1 TABLET BY MOUTH EVERY DAY Oral for 90 Days Active Metoprolol Succinate ER 50 MG TAKE 1 TABLET BY MOUTH EVERY DAY Oral for 90 Days Active traZODone HCl 50 MG 1 tablet at bedtime Orally Once a day for 90 days As needed Active Social History Sex Assigned At : Social History Observation Description Sex Assigned At Female Problems Problem Type SNOMED Code ICD Code Onset Dates Problem Status W/U Status Risk Notes Problem Hypertension (17217081) HTN (hypertens ion) (I10) 11/27/2013 Active confirmed Problem Obstructive sleep apnea syndrome (40870844) BOBBY (obstructi ve sleep apnea) (G47.33) 07/18/2019 Active confirmed Vital Signs Blood pressure systolic 148 mm Hg 07/14/19 25 Blood pressure diastolic 72 mm Hg 025 Heart Rate 66 /min 07/14/2024 Height 65.00 in 07/14/2024 Weight 126 lbs 07/14/2024 BMI 20.97 kg/m2 07/14/2024 Height-cm 165.10 cm 07/14/2024 Weight-kg 57.15 kg 07/14/2024 Encounters Encounter Location Date Provider Diagnosis [facility] [employer] [address] [place] [address] 07/14/2024 Jean Stone Primary insomnia F51.01 ; HTN (hypertension) I10 ; BOBBY (obstructive sleep apnea) G47.33 ; Major depressive disorder, recurrent severe without psychotic features F33.2 ; Obstructive sleep apnea (adult) (pediatric) G47.33 and MCI (mild cognitive impairment) G31.84 Assessments Encounter Date Diagnosis (ICD Code) Assessment Notes Treatment Notes Treatment Clinical Notes Section Notes 07/14/2024 Primary insomnia (ICD-10 - F51.01) Cataracts and Declining Eyesight - Assessment: Patient reports difficulty driving, especially at night, due to vision problems. Patient mentions possible cataract issue and an unspecified eye condition. - Plan: - Continue current treatment with injections in the right eye. - Recommend follow-up with an day porter for further evaluation and management. Hearing Loss [...] Assessment: Patient lives with a 92-year-old male legal receptionist who provides food and support. Patient assists with housework and receives care from legal receptionist. 07/14/2024 HTN (hypertension) (ICD-10 - I10) Cataracts and Declining Eyesight - Assessment: Patient reports difficulty driving, especially at night, due to vision problems. Patient mentions possible cataract issue and an unspecified eye condition. - Plan: - Continue current treatment with injections in the right eye. - Recommend follow-up with an day porter for further evaluation and management. Hearing Loss [...] Assessment: Patient lives with a 92-year-old male legal receptionist who provides food and support. Patient assists with housework and receives care from legal receptionist. 07/14/2024 BOBBY (obstructive sleep apnea) (ICD-10 - G47.33) Cataracts and Declining Eyesight - Assessment: Patient reports difficulty driving, especially at night, due to vision problems. Patient mentions possible cataract issue and an unspecified eye condition. - Plan: - Continue current treatment with injections in the right eye. - Recommend follow-up with an day porter for further evaluation and management. Hearing Loss [...] Assessment: Patient lives with a 92-year-old male legal receptionist who provides food and support. Patient assists with housework and receives care from legal receptionist. 07/14/2024 Major depressive disorder, recurrent severe without psychotic features (ICD-10 - F33.2) Cataracts and Declining Eyesight - Assessment: Patient reports difficulty driving, especially at night, due to vision problems. Patient mentions possible cataract issue and an unspecified eye condition. - Plan: - Continue current treatment with injections in the right eye. - Recommend follow-up with an day porter for further evaluation and management. Hearing Loss [...] Assessment: Patient lives with a 92-year-old male legal receptionist who provides food and support. Patient assists with housework and receives care from legal receptionist. 07/14/2024 Obstructive sleep apnea (adult) (pediatric) (ICD-10 - G47.33) Cataracts and Declining Eyesight - Assessment: Patient reports difficulty driving, especially at night, due to vision problems. Patient mentions possible cataract issue and an unspecified eye condition. - Plan: - Continue current treatment with injections in the right eye. - Recommend follow-up with an day porter for further evaluation and management. Hearing Loss [...] Assessment: Patient lives with a 92-year-old male legal receptionist who provides food and support. Patient assists with housework and receives care from legal receptionist. 07/14/2024 MCI (mild cognitive impairment) (ICD-10 - G31.84) Cataracts and Declining Eyesight - Assessment: Patient reports difficulty driving, especially at night, due to vision problems. Patient mentions possible cataract issue and an unspecified eye condition. - Plan: - Continue current treatment with injections in the right eye. - Recommend follow-up with an day porter for further evaluation and management. Hearing Loss [...] Assessment: Patient lives with a 92-year-old male legal receptionist who provides food and support. Patient assists with housework and receives care from legal receptionist. 07/14/2024 Other referral to the local chapter or national office of the Alzheimer's Association (3-553-015-390 0; http://www.alz .org), the Alzheimer's Disease Education and Referral Center (ADEAR) (8-906-954-438 0; http://www.alexis .nih.gov/Alzhe imers/), Cataracts and Declining Eyesight - Assessment: Patient reports difficulty driving, especially at night, due to vision problems. Patient mentions possible cataract issue and an unspecified eye condition. - Plan: - Continue current treatment with injections in the right eye. - Recommend follow-up with an day porter for further evaluation and management. Hearing Loss [...] Assessment: Patient lives with a 92-year-old male legal receptionist who provides food and support. Patient assists with housework and receives care from legal receptionist. Plan Of Treatment Medication Medication Name Sig Start Date Stop Date Notes Escitalopram Oxalate 20 MG 1 tablet Oral Once a day for 90 days traZODone HCl 50 MG 1 tablet at bedtime Orally Once a day for 90 days Treatment Notes Assessment Notes Other referral to the local chapter or national office of the Alzheimer's Association ( ; http://www.alz.org), the Alzheimer's Disease Education and Referral Center (ADEAR) ( ; http://www.alexis.nih.gov/Alzheimers/), Next Appt Details Follow Up: 6 Months, Reason: Provider Name:Jean Stone , 01/01/2025 02:45:00 PM, [address], [facility] [address], [place], [address], Progress Notes * AB SMITHB:1940 ([age] yo F)Acc No.[id number]:07/14/2024 Patient: AYO KUMARI Provider: Edgar STONE MD :1940 A ge:83 Y S ex:Female Date:07/14/2024 Address:[address] [place], [place] [id number] Pcp:Marshall Mejia NP Subjective: * Chief Complaints: * F ollow upDepression screening positiveMIPS with Diagnosis of HTNFunctional status reviewedMIPS BP exclusion due to established diagnosis of HTN * HPI: D epression Screening: The note is transcribed using speech recognition software. It is a reflection of a visit with the patient. It might have some inaccuracy, including medication names and transcribing errors, though efforts have been made to correct them. Chief Complaint: Declining eyesight, hearing, and energy levels The patient, an 83-year-old female, presents with concerns about declining eyesight, hearing, and energy levels. She reports having cataracts and receiving injections in her right eye for an unspecified condition. The patient experiences difficulty driving, particularly in the dark, and has stopped driving at night. Mental Health: The patient reports feeling depressed and excessively worried about her son's well-being. Her anxiety and depression are affecting her sleep. Living Situation: The patient lives with a non-romantic partner in a brother-sister relationship. She helps with housework and her partner provides food. Her partner is 92 years old and has mobility issues, awaiting a knee replacement. Family Concerns: The patient's mood is affected by her relationship with her 60-year-old son, whom she supports financially. She reports that he is not working and has limited contact with her. Medical History: The patient has hypertension and is on medication for high blood pressure. She has a memory test score of 23, indicating mild cognitive impairment. Medications: The patient currently takes half of a trazodone tablet for sleep issues and is on Namzaric for cognitive impairment. Treatment Considerations: The patient expresses interest in trying natural remedies like melatonin for sleep and turmeric for memory improvement. She declines to try Aricept-Donepezil. JEN-7 (2018 Edition) F eeling nervous, anxious, [...] if something awful might happen S everal days,?Total JEN-7 Score 7 , I nterpretation of Total ( 5 to 9) Mild. D epression screening: PHQ-9 L ittle interest or pleasure in doing things S everal days, F eeling down, depressed, or hopeless S everal days, T rouble falling or staying asleep, or sleeping too much M ore than half the days, F eeling tired or having little energy N early every day, P oor appetite or overeating N ot at all, F eeling bad about yourself or that you are a failure, or have let yourself or your family down S ever, Trouble concentrating on things, such as reading the newspaper or watching television S , M oving or speaking so slowly that other people could have noticed; or the opposite, being so fidgety or restless that you have been moving around a lot more than usual S ,?Thoughts that you would be better off or of hurting yourself in some way N ot at all, Total Score 1 0, I nterpretation M oderate Depression. I ntervention D epression Screening Findings P ositve, F ollow-Up for Depression M ental health treatment assessment, Patient follow-up to return when and if necessary, S uicide Risk Assessment Performed? , A dditional Evaluation for Depression P sychiatric interview and evaluation, N kuldeep of the standardized tool used for adult depression screening: [facility] Health Questionnaire (PHQ-9). * ROS: P elsa not eligible due to active diagnosis of hypertension: G 9744. * Medical History: * Surgical History: * Hospitalization/Major Diagno stic Procedure: * Social History: M igrated Social History: M igrated Social History: Alcohol Intake: None 05/09/2018,Tobacco Years: Never smoker 05/09/2018. * Medications: T akingLosartan Potassium 100 MG Tablet TAKE 1 TABLET BY MOUTH EVERY DAY Oral Metoprolol Succinate ER 50 MG Tablet Extended Release 24 Hour TAKE 1 TABLET BY MOUTH EVERY DAY Oral Escitalopram Oxalate 20 MG Tablet 1 tablet Oral Once a day traZODone HCl 50 MG Tablet 1 tablet at bedtime Orally Once a day Taking Losartan Potassium 100 MG Tablet TAKE 1 TABLET BY MOUTH EVERY DAY Oral Taking Metoprolol Succinate ER 50 MG Tablet Extended Release 24 Hour TAKE 1 TABLET BY MOUTH EVERY DAY Oral Taking Escitalopram Oxalate 20 MG Tablet 1 tablet Oral Once a day Taking traZODone HCl 50 MG Tablet 1 tablet at bedtime Orally Once a day DiscontinuedOmeprazole 20 MG Capsule Delayed Release TAKE ONE CAPSULE BY MOUTH ONCE DAILY THIRTY MINUTES TO ONE HOUR BEFORE A MEAL Oral Donepezil HCl 5 MG Tablet TAKE 1 TABLET BY MOUTH EVERY DAY AT BEDTIME FOR 30 DAYS Medication List reviewed and reconciled with the patientDiscontinued Omeprazole 20 MG Capsule Delayed Release TAKE ONE CAPSULE BY MOUTH ONCE DAILY THIRTY MINUTES TO ONE HOUR BEFORE A MEAL Oral Discontinued Donepezil HCl 5 MG Tablet TAKE 1 TABLET BY MOUTH EVERY DAY AT BEDTIME FOR 30 DAYS Medication List reviewed and reconciled with the patient * Allergies: N .K.DKenA.no[Allergies Verified] Objective: * Vitals: B P:148/72mm Hg, HR:66/min, Wt:126lbs, Wt-k.15 kg, Ht: 65.00 in, Ht-cm: 165.10 cm, BMI:20.97Index, Body Surface Area: 1.62. * Examination: N eurology: Cognition Assessment Tools Used T otal score SLUMS 23. F unctional Assessment: Diaz Index of ADL [...] egativeCaregiver education and support provided Y es. [place] eneral Examination: M ental Status Examination: Patient reports difficulty with eyesight, particularly at night, affecting her ability to drive. Expressed feelings of depression related to financial support of her adult son. Reports excessive worry and anxiety. Sleep disturbances noted, with difficulty sleeping and daytime tiredness. Cognitive function assessed with a memory test score of 23, indicating mild cognitive impairment. Vital Signs: review the notes for vitals Physical Examination: Eye: Patient reports receiving injections in the right eye for an unspecified condition, possibly related to cataracts. Difficulty driving at night due to vision problems. Musculoskeletal: Co-resident requires knee replacement and has mobility issues, can hardly walk. Neurological: Mild cognitive impairment as evidenced by memory test score. All Relevant Diagnostic Test Results and Labs: Memory test conducted on current visit date (WedJul 14 2024) resulted in a score of 23, suggesting mild cognitive impairment. Additional Information: Patient is 83 years old. Lives with a 92-year-old co- resident in a non-marital relationship. Has a history of hypertension. Currently taking Lexapro 20 mg daily for depression and anxiety. Taking trazodone 50 mg (half tablet) at night for sleep. Declined to start Aricept (donepezil) for memory issues. Interested in trying natural remedies like turmeric for cognitive health. Assessment: * Assessment: 1. 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 2. 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 O SA (obstructive sleep apnea) - G47.33 4 . H TN (hypertension) - I10 5 . O bstructive sleep apnea (adult) (pediatric) - G47.33 6 . M CI (mild cognitive impairment) - G31.84 Cataracts and Declining Eyes ight - Assessment: Patient reports difficulty driving, especially at night, due to vision problems. Patient mentions possible cataract issue and an unspecified eye condition. - Plan: - Continue current treatment with injections in the right eye. - Recommend follow-up with an day porter for further evaluation and management. Hearing Loss [...] Assessment: Patient lives with a 92-year-old male legal receptionist who provides food and support. Patient assists with housework and receives care from legal receptionist. Plan: * Treatment: 2. P rimary insomnia Refill traZODone HCl Tablet, 50 MG, 1 tablet at bedtime, Orally, Once a day As needed, 90 days, 90, Refills 0. 3. O thers Notes: referral to the local [facility] [place] [facility] office of the Alzheimer's Association ( ;http://www.alz.org), the Alzheimer'sDisease Education and Referral Center (ADEND) ( ;http://www.alexis.nih.gov/Patrick le/), * Procedure Codes: G 9744 Pt not susan d/t act dig [id number] BEHAV ASSMT W/SCORE & DOCD/STAND INSTRUMENT * Preventive Medicine: Counseling: B P Management: F IRST HYPERTENSIVE BP READING FOLLOW-UP PLAN: F ollow-up 1 month Follow up with your PCP, Velia BASURTO RECOMMENDATION: Velia basurto education, REFERRAL TO ALTERNATIVE / PRIMARY CARE PROVIDER: R eferral to general medical service Recommended Nonpharmacologic Interventions (Lifestyle Modifications) - Weight ReductionA heart-healthy diet , such as Dietary Approaches to Stop Hypertension (DASH) Eating PlanDietary Sodium RestrictionIncreased Physical ActivityModeration in alcohol consumption. * Follow Up: 6 Months * Billing Information: * Visit Code: 91359 OFFICE OUTPATIENT VISIT 25 MINUTES DETAILED HISTORY AND EXAM/MODERATE MEDICAL DECISION MAKING. * Procedure Codes: G9744 Pt [place] susan d/[place]. [id number] BEHAV ASSMT W/SCORE & DOCD/STAND INSTRUMENT. * ATTENDANT Sign off status: Completed true * Provider: Edgar STONE MD Date: 0 07/14/2024 Generated for Katarina navarrete/Marina/eTransmitting on: 0 09/20/2024 05:48 PM CDT History and Physical Notes * HPI (History of Present Illness) Category Sub-Category Detail Notes Category Not es Depression screening PHQ-9 Little inte rest or pleasure in doing things: Several days Feeling down, depressed, or hopeless: Se veral days Trouble falling or staying a sleep, or sleeping too much: More than half the days Feeling tired or having little energy: N early every day Poor appetite or overeating: Not at all Feeling bad about yourself o r that you are a failure, or have let yourself or your family down: Several days Trouble concentrating on thi ngs, such as [...] some way: Not at all Total Score: 10 Interpretation: Moderate Depression Intervention Depression Screening Findings: P ositve Follow-Up for Depression: [facility] treatment assessment, Patient follow-up to return when and if necessary Suicide Risk Assessment Performed: Additional Evaluation for [...] Interpretation of Total: (5 to 9) Mild Examination Category Sub-Category Detail Notes Category Not es Neurology Cognition Assessment Tools Used Total score SLUMS: 23 Psychiatry Dementia Safety concern s creening for [...] Examination Mental Status Examination: Patient reports difficulty with eyesight, particularly at night, affecting her ability to drive. Expressed feelings of depression related to financial support of her adult son. Reports excessive worry and anxiety. Sleep disturbances noted, with difficulty sleeping and daytime tiredness. Cognitive function assessed with a memory test score of 23, indicating mild cognitive impairment. Vital Signs: review the notes for vitals Physical Examination: Eye: Patient reports receiving injections in the right eye for an unspecified condition, possibly related to cataracts. Difficulty driving at night due to vision problems. Musculoskeletal: Co-resident requires knee replacement and has mobility issues, can hardly walk. Neurological: Mild cognitive impairment as evidenced by memory test score. All Relevant Diagnostic Test Results and Labs: Memory test conducted on current visit date (WedJul 14 2024) resulted in a score of 23, suggesting mild cognitive impairment. Additional Information: Patient is 83 years old. Lives with a 92-year-old co-resident in a non-marital relationship. Has a history of hypertension. Currently taking Lexapro 20 mg daily for depression and anxiety. Taking trazodone 50 mg (half tablet) at night for sleep. Declined to start Aricept (donepezil) for memory issues. Interested in trying natural remedies like turmeric for cognitive health. Functional Assessment Diaz Index of ADL Score:: 6 1 point for independence, 0 for help 1 point for independence, 0 for help Physical Functioning Personal hygiene: [...]
--- OUTSIDE RECORDS SUMMARY | 2024-09-20 17:48 | XMS_ITS | Encounter Summary ---
Author Organization [facility] Health Address [address] [place] [address] Care Team Providers Care Cloth Colorer Name Role Phone Marshall Renner MD Primary Care Provider [phone] Doug Robledo MD Unavailable [phone] Tony Yee MD Primary Care Provider [phone] Michelet English DO Primary Care Provider [phone] Encounter Details Date Type Department Care Team (Late st Contact Info) Description 12/06/2013 [facility] Outpatient Visit EXTERNAL NON-[facility] DEPT [facility] Heart [address] [place] [address] Social History Tobacco Use Types Packs/Day Years [...] on filedocumented in this encounter Care Teams Cloth Colorer Relationship Specialty Start Date End Date Marshall Renner MD [address] [place] [address] PCP - General Internal Medicine 11/24/13 09/12/15 Tony Yee MD [address] [place] [address] PCP - General Internal Medicine 09/13/15 04/12/18 Michelet English DO [address] [place] [address] PCP - General Internal Medicine 04/13/18 Doug Robledo MD [address] [address] Cardiology 09/24/14 documented as of this encounter
--- OUTSIDE RECORDS SUMMARY | 2024-09-20 17:48 | XMS_ITS | Patient Health Summary ---
Author Organization [facility] Address [address] [place] [address] Care Team Providers Care Software Configuration Engineer Name Role Phone Doug Robledo MD Unavailable [phone] Michelet English DO Primary Care Provider [phone] Note from [facility],non-owned Affiliates and Associated Physician Practices is amultiple site organization consisting of ambulatory clinics and hospital sitesin [place], [place], [place] and [place]. This disclosure is being madepursuant to the Care Everywhere program and may not contain all information available regarding this patient. Last updated 18.[facility] Allergies No known active allergies Medications * Be aware that medications may not be up to date on this document. Alwaysverify current medications with the patient. * aspirin 81 MG tablet Take 81 mg by mouth once daily. * FLUoxetine (PROZAC) 20 MG capsule(Started 09/16/2014) 20 mg once daily * Multiple Vitamins-Minerals (QC WOMENS DAILY MULTIVITAMIN PO) * omeprazole (PRILOSEC) 20 MG capsule Take 20 mg by mouth daily before breakfast * metoprolol succinate XL 24hr (TOPROL XL) 50 MG tablet Take 50 mg by mouth once daily * losartan (COZAAR) 100 MG tablet Take 100 mg by mouth once daily * TraZODone & Diet Manage Prod (TRAZAMINE) 50 MG MISC * escitalopram (LEXAPRO) 5 MG tablet Take 5 mg by mouth once daily * amLODIPine (NORVASC) 5 MG tablet(Started 09/12/2018) TAKE ONE TABLET BY MOUTH ONCE DAILY 5 refills remaining Active Problems Problem Noted Date Diagnosed Date Mitral valve disorder 10/09/2015 Aortic valve disorder 03/29/2015 Palpitations 03/29/2015 HTN (hypertension) 11/27/2013 Sleep apnea [...] cm (5' 2 ) 07/10/2016 12:05 PM SHIFT SUPERVISOR RN Body Mass Index 24.91 07/10/2016 12:05 PM SHIFT SUPERVISOR RN Procedures * HOLTER MONITOR(Performed 04/27/2018) Performed for Essential hypertension, Aortic valve disorder, Palpitation * IMAGING/RADIOLOGY/XRAY RESULTS ORDER(Performed 04/12/2018) * ECHOCARDIOGRAM 2D WITH DOPPLER(Performed 10/11/2017) Performed for Aortic valve disorder, Essential hypertension * ECHOCARDIOGRAM 2D WITH DOPPLER(Performed 11/28/2015) Performed for Aortic valve disorder, Mitral valve disorder * EVENT MONITOR(Performed 11/22/2015) Performed for Palpitations * LAB RESULTS ORDER(Performed 05/20/2015) * CT ANGIO ABDOMEN PELVIS(Performed 05/20/2015) * ECHOCARDIOGRAM 2D WITH DOPPLER(Performed 04/19/2015) Performed for Aortic valve disorder * EVENT MONITOR(Performed 04/30/2014) Performed for Palpitations * ECHOCARDIOGRAM 2D WITH DOPPLER(Performed 04/03/2014) Performed for Palpitations * NM MYOCARD PERF REST STRESS(Performed 12/11/2013) Performed for Other Chest Pain * HOLTER MONITOR(Performed 08/21/2013) * CARDIAC PROCEDURE ORDER(Performed 01/18/2013) * ECHOCARDIOGRAM 2D WITH DOPPLER(Performed 01/11/2013) Performed for Aortic insufficiency, Mitral regurgitation * CARDIAC ECHOCARDIOGRAM COMPLETE ORDER(Performed 06/18/2011) * MAMMO BILAT SCREENING(Performed 03/06/2011) Performed for Other screening mammogram * MAMMO RIGHT DIAGNOSTIC(Performed 02/21/2010) Performed for Abnormal Mammogram, Unspecified * MAMMO BILAT SCREENING(Performed 02/05/2010) Performed for Other Screening Mammogram * BASIC METABOLIC PANEL (CALCIUM TOTAL)(Performed 09/30/2009) Performed for Pure Hypercholesterolem * LIPID PROFILE(Performed 09/30/2009) Performed for Pure Hypercholesterolem * HEPATIC FUNCTION PANEL(Performed 03/29/2009) Performed for Pure Hypercholesterolem * LIPID PROFILE(Performed 03/29/2009) Performed for Pure Hypercholesterolem * MAMMO BILAT SCREENING(Performed 12/21/2008) Performed for Other Screening Mammogram Results * MONITOR - HOLTER (04/27/2018) Only the most recent of2 resultswithin the time period is included. Impressions Doug Robledo MD - 04/27/2018 [facility] - Holter Monitor Name: Ayo Smith : 1940 Primary Care Physician:Michelet English DO Referring Physician: Doug Robledo MD Clinical Indication: Palpitations. A 14 day holter was placed on 04/13/18. Findings: 14 day holter demonstrates sinus rhythm with an average heart rate of 62 bpm. The minimum HR was 43 bpm at 3:48am and the maximum HR was 96 bpm at 6:22pm. There were very rare isolated atrial ventricular premature complexes. There was a 3 beat and 4 beat run of nonsustained VT. There were 3 pauses up to 2.1 sec overnight. The patient recorded several episodes of palpitations. Most of the strips demonstrate sinus while several demonstrate sinus with isolated PVCs. Conclusion: 1. 14 day Holter demonstrates sinus rhythm with very rare isolated APCs and PVCs. There were 2 brief runs of non-sustained VT up to 4 beats. 2. There were no significant tachycardic or bradycardic episodes. 3. The patient recorded episodes of palpitations. Corresponding strips demonstrate sinus rhythm while a few demonstrated isolated PVCs. Thank you. Please do not hesitate to call if there are any questions. Doug Robledo MD [facility] Heart [facility] Vascular Care Office Doug Robledo MD CARDIAC SERVICES ORD ERABLES * IMAGING/RADIOLOGY/XRAY RESULTS ORDER (04/12/2018) Anatomical Region Laterality Modality Other Scanned Document IMAGING * ECHOCARDIOGRAM 2D WITH DOPPLER (10/11/2017 1:51 PM CDT) Only the most recent of5 resultswithin the time period is included. 10/11/2017 1:[address] [facility] CARDIOLOGY - 10/12/2017 11:04 AM CDT [facility] at [address] [place] [address] Transthoracic Echocardiogram 2D, M-mode, Doppler, and Color Doppler Patient: AYO SMITH MR number: [id number] Height: 62 in Weight: 130.7 lb BSA: 1.6 m Study date: 11-Oct-2017 : 1940 Age: 76 years Gender: Female Race: Television And Radio Repairer: MIO hCahal Referring Physician: Doug Robledo MD Reading Physician: Paco Baker MD Summary: - Clinical question: - AV disorder, HTN - History: - HTN, sleep apnea, MV disorder, AV disorder - Left ventricle: - Systolic function was normal. Ejection fraction was estimated to be 55 %. - There were no regional wall motion abnormalities. - Wall thickness was mildly increased. - Doppler parameters were consistent with abnormal left ventricular relaxation (grade 1 diastolic dysfunction). - Aortic valve: - There was mild regurgitation. - Mitral valve: - There was moderate regurgitation. - Left atrium: - The atrium was moderately dilated. - Pulmonic valve: - There was mild stenosis. Peak velocity is 2.1 m/sec. - There was mild to moderate regurgitation. - Pulmonary arteries: - Systolic pressure was mildly increased. Estimated peak pressure was 45 mmHg. - Tricuspid valve: - There was moderate regurgitation. - Right atrium: - The atrium was mildly dilated. Indications: AV disorder, HTN History: Prior history: HTN, sleep apnea, MV disorder, AV disorder Procedure: The study was performed in the [facility]. The transthoracic approach was used. The study included complete 2D imaging, M-mode, complete spectral Doppler, and color Doppler. Systolic blood pressure was 152 mmHg. Diastolic blood pressure was 61 mmHg. Image quality was adequate. Left ventricle: Size was normal. Systolic function was normal. Ejection fraction was estimated to be 55 %. There were no regional wall motion abnormalities. Wall thickness was mildly increased. Doppler: Doppler parameters were consistent with abnormal left ventricular relaxation (grade 1 diastolic dysfunction). Aortic valve: The valve was trileaflet. Leaflets exhibited normal thickness and normal cuspal separation. Doppler: There was no stenosis. There was mild regurgitation. Aorta: The root exhibited normal size. Mitral valve: Valve structure was normal. There was normal leaflet separation. Doppler: The transmitral velocity was within the normal range. There was no evidence for stenosis. There was moderate regurgitation. Left atrium: The atrium was moderately dilated. Right ventricle: The size was normal. Systolic function was normal. Wall thickness was normal. Pulmonic valve: Doppler: There was mild stenosis. Peak velocity is 2.1 m/sec. There was mild to moderate regurgitation. Pulmonary artery: The size was normal. Doppler: Systolic pressure was mildly increased. Estimated peak pressure was 45 mmHg. Tricuspid valve: The valve structure was normal. There was normal leaflet separation. Doppler: The transtricuspid velocity was within the normal range. There was no evidence for tricuspid stenosis. There was moderate regurgitation. Right atrium: The atrium was mildly dilated. Systemic veins: IVC: The inferior vena cava was normal in size. Pericardium: The pericardium was normal in appearance. System measurement tables 2D Ao Diam: 3 cm LVOT Diam: 2 cm LA Diam: 3.6 cm LAEDV Index (A-L): 35 ml/m2 LAEDV(A-L): 56 ml IVSd: 1.1 cm LVIDd: 5.1 cm LVIDs: 3.6 cm LVPWd: 1.3 cm CW AR PHT: 737.1 ms AR Vmax: 3.1 m/s AV VTI: 28 cm AV Vmax: 1.2 m/s AV Vmean: 0.8 m/s AV maxP.9 mmHg AV meanP.1 mmHg PV Vmax: 2.2 m/s PV maxP.6 mmHg TR Vmax: 3.2 m/s MM TAPSE: 2.5 cm PW YIN (VTI): 2.5 cm2 YIN Vmax: 2.5 cm2 LVOT VTI: 21.8 cm LVOT Vmax: 0.9 m/s LVOT Vmean: 0.6 m/s LVOT maxP.5 mmHg LVOT meanP.5 mmHg MV E/A Ratio: 0.9 LATERAL E': 0.1 m/s LATERAL E/E': 16.4 SEPTAL E': 0 m/s SEPTAL E/E': 24.4 Prepared and signed by Paco Baker MD Signed 12-Oct-2017 11:04:35 Procedure Note Celena Baker MD - 10/12/2017 [facility] at [address] [place] [address] Transthoracic Echocardiogram 2D, M-mode, Doppler, and Color Doppler Patient: AYO SMITH MR number: [id number] Height: 62 in Weight: 130.7 lb BSA: 1.6 m Study date: 11-Oct-2017 : 1940 Age: 76 years Gender: Female Race: Television And Radio Repairer: MIO Chahal Referring Physician: Doug Robledo MD Reading Physician: Paco Baker MD Summary: - Clinical question: - AV disorder, HTN - History: - HTN, sleep apnea, MV disorder, AV disorder - Left ventricle: - Systolic function was normal. Ejection fraction was estimated to be 55 %. - There were no regional wall motion abnormalities. - Wall thickness was mildly increased. - Doppler parameters were consistent with abnormal left ventricular relaxation (grade 1 diastolic dysfunction). - Aortic valve: - There was mild regurgitation. - Mitral valve: - There was moderate regurgitation. - Left atrium: - The atrium was moderately dilated. - Pulmonic valve: - There was mild stenosis. Peak velocity is 2.1 m/sec. - There was mild to moderate regurgitation. - Pulmonary arteries: - Systolic pressure was mildly increased. Estimated peak pressure was 45 mmHg. - Tricuspid valve: - There was moderate regurgitation. - Right atrium: - The atrium was mildly dilated. Indications: AV disorder, HTN History: Prior history: HTN, sleep apnea, MV disorder, AV disorder Procedure: The study was performed in the [facility]. The transthoracic approach was used. The study included complete 2D imaging, M-mode, complete spectral Doppler, and color Doppler. Systolic blood pressure was 152 mmHg. Diastolic blood pressure was 61 mmHg. Image quality was adequate. Left ventricle: Size was normal. Systolic function was normal. Ejection fraction was estimated to be 55 %. There were no regional wall motion abnormalities. Wall thickness was mildly increased. Doppler: Doppler parameters were consistent with abnormal left ventricular relaxation (grade 1 diastolic dysfunction). Aortic valve: The valve was trileaflet. Leaflets exhibited normal thickness and normal cuspal separation. Doppler: There was no stenosis. There was mild regurgitation. Aorta: The root exhibited normal size. Mitral valve: Valve structure was normal. There was normal leaflet separation. Doppler: The transmitral velocity was within the normal range. There was no evidence for stenosis. There was moderate regurgitation. Left atrium: The atrium was moderately dilated. Right ventricle: The size was normal. Systolic function was normal. Wall thickness was normal. Pulmonic valve: Doppler: There was mild stenosis. Peak velocity is 2.1 m/sec. There was mild to moderate regurgitation. Pulmonary artery: The size was normal. Doppler: Systolic pressure was mildly increased. Estimated peak pressure was 45 mmHg. Tricuspid valve: The valve structure was normal. There was normal leaflet separation. Doppler: The transtricuspid velocity was within the normal range. There was no evidence for tricuspid stenosis. There was moderate regurgitation. Right atrium: The atrium was mildly dilated. Systemic veins: IVC: The inferior vena cava was normal in size. Pericardium: The pericardium was normal in appearance. System measurement tables 2D Ao Diam: 3 cm LVOT Diam: 2 cm LA Diam: 3.6 cm LAEDV Index (A-L): 35 ml/m2 LAEDV(A-L): 56 ml IVSd: 1.1 cm LVIDd: 5.1 cm LVIDs: 3.6 cm LVPWd: 1.3 cm CW AR PHT: 737.1 ms AR Vmax: 3.1 m/s AV VTI: 28 cm AV Vmax: 1.2 m/s AV Vmean: 0.8 m/s AV maxP.9 mmHg AV meanP.1 mmHg PV Vmax: 2.2 m/s PV maxP.6 mmHg TR Vmax: 3.2 m/s MM TAPSE: 2.5 cm PW YIN (VTI): 2.5 cm2 YIN Vmax: 2.5 cm2 LVOT VTI: 21.8 cm LVOT Vmax: 0.9 m/s LVOT Vmean: 0.6 m/s LVOT maxP.5 mmHg LVOT meanP.5 mmHg MV E/A Ratio: 0.9 LATERAL E': 0.1 m/s LATERAL E/E': 16.4 SEPTAL E': 0 m/s SEPTAL E/E': 24.4 Prepared and signed by Paco Baker MD Signed 12-Oct-2017 11:04:35 Doug Robledo MD ECHO ORDERABLES [facility] [address] [place] [address] * EVENT MONITOR (11/22/2015) Only the most recent of2 resultswithin the time period is included. Impressions Celena Baker MD - 11/22/2015 [facility] - Event Monitor/Zio Moniter Name: Ayo Ozuna Eduardo : 1940 Referring Physician: Tony Yee MD Date of service: 10/31/15 to 11/13/15 Clinical Indication: This is a 74 y.o. female with palpitations Findings: 1. Baseline rhythm is normal sinus rhythm of 65 bpm with a heart rate from 49 bpm to 174 bpm range. First-degree AV block and bundle branch block was present. 2.The following arrythmias were present: Two brief, asymptomatic episodes of nonsustained tachycardia were present with the longest episode of 6 beat duration and heart rate of 174 beats per minute. 37 episodes of asymptomatic, SVT were present the longest episode of 16 beat duration and heart rate of 90 beats per minute. Most of these episodes appear to be atrial tachycardia. One episode at 115 beats per minute was present in which it is possible it was either atrial fibrillation or accelerated junctional rhythm. 3. Pause over 2 seconds:None 4. Rare Premature atrial beats were present. 5. Rare premature ventricular beats were present. Rare ventricular couplets and rare ventricular couplets are present. Rare ventricular bigeminy in rare ventricular trigeminy at present. 6. Patient reported following symptoms: Patient had several episodes of palpitations (31 episodes) which corresponded with premature atrial beats premature ventricular beats. Conclusion: 1. Abnormal Event/Zio Recorder. Few, brief episodes of nonsustained ventricular tachycardia and multiple, asymptomatic episodes of SVT was present as above. Doug Robledo MD CARDIAC SERVICES ORD ERABLES * LAB RESULTS ORDER (05/20/2015) Scanned Document LAB - THERAPEUTIC DR JOCELINE MONITORING ORDERABLES * CT ANGIO ABDOMEN PELVIS (05/20/2015) Anatomical Region Laterality Modality Abdomen, Pelvis Other Scanned Document CT ORDERABLES * NM MYOCARD PERFUSION SPECT STRESS AND REST (12/11/2013 1:41 PM CDT) Anatomical Region Laterality Modality Chest Nuclear Digisoni cs 12/11/2013 12:2 5 PM CDT Narrative Procedure Note 12/11/2013 [address] [place] [address] Etherios/heart Nuclear Scan Report Pat.Name: AYO SMITH Pat.ID: [id number] .Date: 12/11/2013 Refer.MD: Marshall Renner MD Exam Time: 12:25:00 PM Study Type:[facility] Nuc Med Weight: 134lb Age: 6 1940,72Y Sex: FEMALE Sonogrphr: JULIET Enriquez Reason for Study:Chest pain History / Clinical:Palpitations/SVT, AR s/p Ross procedure 1993 Procedures:Lexiscan Perfusion Scan, Gated Stress Visit ID: [id number] Risk Factors:Hypertension, Family history Clinical Symptoms:Chest pain Surgery: Aortic Valve Replacement Medications:Aspirin, Cardizem, Cozaar, Prozac SUMMARY: FINDINGS: Myocardial perfusion imaging reveals uniform distribution of the radiopharmaceutical isotope during the stress and rest imaging sets. Left ventricular cavity size appears normal in both imaging sets. Gated images reveal normal LV systolic function with a calculated ejection fraction of 68%. SUMMARY: 1. Normal myocardial perfusion study without evidence of ischemia. 2. Gated images demonstrate normal LV systolic function. STRESS: Baseline Vital Signs: Intervention: Regadenoson ECG: RBBB Age Indeterminate Peak Dose: 0.4 mg HR: 58 BP: 110/54 QRS [place]: 0.44 deg Rhythm: First degree AV block Stress Test Results: Max HR: 94 Symptoms and Complications: Arrhythmias: Premature Ventricular Ectopy Terminated: Protocol completed Symptoms: Fatigue, Dyspnea Conclusions: Normal heart rate response to pharmacological stress., Normal blood pressure response to pharmacological stress. Stress ECG Interp: Minimal S-T change is not diagnostic of ischemia. Signed 12/11/2013 04:54 PM Doug Robledo MD, [facility] Transcriptions Document, Scanned - 12/11/2013 4:56 PM CDT Doug Robledo MD NM ORDERABLES * CARDIAC PROCEDURE ORDER (01/18/2013 11:55 PM CDT) Narrative 01/18/2013 11:55 PM CDT Procedure Note Document, Scanned - 01/18/2013 11:55 PM CDT Scanned Document CARDIAC SERVICES ORD ERABLES * CARDIAC ECHOCARDIOGRAM COMPLETE ORDER (06/18/2011 2:53 PM SHIFT SUPERVISOR RN) Narrative Transcriptions Document, Scanned - 06/18/2011 2:53 PM CST Scanned Document ECHO ORDERABLES * LEELA SCREENING DIGITAL IMAGE BILATERAL G0202 (03/06/2011 1:12 PM CDT) Only the most recent of3 resultswithin the time period is included. Anatomical Region Laterality Modality Breast Bilateral Mammography 03/09/2011 9:05 AM CDT Narrative 03/09/2011 9:05 AM CDT EXAMINATION: Digital screening mammogram on 03/06/2011. IDENTIFIER HORSE: RT Racheal, JENNIFFER PRIOR: 2008 and 2009 FINDINGS: Computer assisted detection was utilized. The tissue density is fatty. No significant abnormalities are seen. ASSESSMENT: BIRADS Category 1: Negative mammogram. RECOMMENDATION: Follow up in one year. [facility] utilizes Lil[employer] as a reminder system to notify patients of their next recommended mammogram. Procedure Note Fernando Marquez MD - 03/09/2011 EXAMINATION: Digital screening mammogram on 03/06/2011. IDENTIFIER HORSE: RT Springer RM PRIOR: 2008 and 2009 FINDINGS: Computer assisted detection was utilized. The tissue density is fatty. No significant abnormalities are seen. ASSESSMENT: BIRADS Category 1: Negative mammogram. RECOMMENDATION: Follow up in one year. [facility] utilizes [employer] as a reminder system to notify patients of their next recommended mammogram. [facility] Henry HORAN MAMMO ORDERABLES * LEELA DIAG DIRECT DIGITAL IMAGE UNI RIGHT G0206 (02/21/2010 11:18 AM CDT) Anatomical Region Laterality Modality Right Mammography 02/21/2010 11:2 9 AM CDT Narrative 02/21/2010 11:29 AM CDT EXAMINATION: Right digital diagnostic mammogram on 02/21/2010 INDICATION: Questionable new nodule IDENTIFIER HORSE: RT Dario, RM FINDINGS: Computer assisted detection was not utilized. The tissue density is average. Spot compression views of the right breast demonstrates nodular parenchyma lateral to the nipple without change from 2008. No discrete nodule is confirmed on additional images. ASSESSMENT: BIRADS Category 1: Negative mammogram.. RECOMMENDATION: Followup mammogram in one year . Procedure Note Pricila Carroll MD - 02/21/2010 EXAMINATION: Right digital diagnostic mammogram on 02/21/2010 INDICATION: Questionable new nodule IDENTIFIER HORSE: Sienna León, RT, RM FINDINGS: Computer assisted detection was not utilized. The tissue density is average. Spot compression views of the right breast demonstrates nodular parenchyma lateral to the nipple without change from 2008. No discrete nodule is confirmed on additional images. ASSESSMENT: BIRADS Category 1: Negative mammogram.. RECOMMENDATION: Followup mammogram in one year . Kenny Figueroa MD MAMMO ORDERABLES * (ABNORMAL) BASIC METABOLIC PANEL (CALCIUM TOTAL) (09/30/2009 1:36 PM CDT) Sodium 138 137 - 145 mmol/L [facility] Potassium 4.2 3.6 - 5.0 mmol/L [facility] Chloride 102 98 - 107 mmol/L [facility] BUN 17 7 - 17 mg/dl [facility] Creatinine 0.78 0.52 - 1.04 mg/dl [facility] Glucose 119(H) 65 - 105 mg/dl [facility] CO2 28 22 - 30 mmol/L [facility] Calcium 9.6 8.4 - 10.2 mg/dl [facility] eGFR by MDRD 73 >60 mL/min/1.[address] [facility] Comment eGFR [facility] Comment: The eGFR does not apply to patients who are younger than 18 or older than 70. BLOOD SPECIMEN / Unknown 09/30/2009 1:36 PM CDT 09/30/2009 1:36 PM CDT Edward Schreiber MD LAB - CHEMISTRY ZOYA ALVAREZ [facility] Organization Address City/State/[facility] Co de Phone Number [facility] [address] [place] [address] * (ABNORMAL) LIPID PROFILE (09/30/2009 1:36 PM CDT) Only the most recent of2 resultswithin the time period is included. Cholesterol 222(H) <200 mg/dl [facility] Triglycerides 64 <150 mg/dl [facility] HDL Cholesterol 81 >=40 mg/dl [facility] VLDL Calculated 13 <=30 mg/dl [facility] LDL Calculated 128(H) <100 mg/dl [facility] Cholesterol Risk Factor 2.74 <4.45 [facility] Comment Lipid [facility] Comment: Normal values based on [place] [employer] guidelines. LIPID PROFILE GUIDELINES Total Cholesterol Category -------- Less than 200 mg/dl Desirable level that puts you at lower risk for heart disease. A cholesterol level of 200 mg/dl or greater increases your risk. 200 to 239 mg/dl Borderline high 240 mg/dl and above High blood cholesterol. A person with this level has more than twice the risk of heart disease compared to someone whose cholesterol is below 200 mg/dl. HDL Cholesterol Category -------- Less than 40 mg/dl Low HDL cholesterol. A major risk factor for heart disease. 40 to 59 mg/dl Borderline low. 60 mg/dl and above High HDL cholesterol. An HDL of 60 and above is considered protective against heart disease. LDL Cholesterol Category -------- Less than 100 mg/dl Optimal 100 to 129 mg/dl Near or above optimal 130 to 159 mg/dl Borderline high 160 to 189 mg/dl High 190 mg/dl and above Very high Triglyceride Category -------- Less than 150 mg/dl Normal 150 to 199 mg/dl Borderline high 200 to 499 mg/dl High 500 mg/dl and above Very high BLOOD SPECIMEN / Unknown 09/30/2009 1:36 PM CDT 09/30/2009 1:36 PM CDT Edward Schreiber MD LAB - CHEMISTRY [facility] [employer] Organization Address City/State/ZIP Co de Phone Number [facility] [address] [place] [address] * HEPATIC FUNCTION PANEL (03/29/2009 10:20 AM CDT) Alkaline Phosphatase 76 38 - 126 U/L [facility] AST 24 8 - 39 U/L [facility] Bilirubin Total 0.5 0.2 - 1.3 mg/dl [facility] Albumin 4.4 3.9 - 5.0 gm/dl [facility] ALT 25 9 - 52 U/L [facility] Bilirubin Direct 0.0 <0.3 mg/dl [facility] Protein Total 7.6 6.3 - 8.2 gm/dl [facility] BLOOD SPECIMEN / Unknown 03/29/2009 10:20 AM CDT Edward Schreiber MD LAB - CHEMISTRY ZOYA ALVAREZ [facility] [address] [place] [address] Care Teams Software Configuration Engineer Relationship Specialty Start Date End Date Michelet English DO [address] [place] [address] PCP - General Internal Medicine 04/13/18 Doug Robledo MD [facility] [address] [place] [address] Cardiology 09/24/14
--- OUTSIDE RECORDS SUMMARY | 2024-09-20 17:48 | XMS_ITS | Clinical Summary ---
Author Organization [facility] Address [address] [place] [address] Care Team Providers Care Screed Person Name Role Phone Doug Robledo MD Unavailable [phone] Michelet English DO Primary Care Provider [phone] Source Comments [facility],non-owned Affiliates and Associated Physician Practices is amultiple site organization consisting of ambulatory clinics and hospital sitesin [place], [place], [place] and [place]. This disclosure is being madepursuant to the Care Everywhere program and may not contain all information available regarding this patient. Last updated 18.[facility] Allergies No known active allergies Medications * [...] Sleep apnea 11/27/2013 Anxiety 11/27/2013 Depression 11/27/2013 Family History Medical History Relation Name Comments CT Father Relation Name Status Comments Father Social History Tobacco Use Types Packs/Day Years [...] cm (5' 2 ) 07/10/2016 12:05 PM TECHNOLOGY APPLICATIONS ENGINEER Body Mass Index 24.91 07/10/2016 12:05 PM TECHNOLOGY APPLICATIONS ENGINEER Plan of Treatment Health Maintenance Due Date Last Done Comments BONE DENSITY TESTING 1938 DTAP/TDAP/TD VACCINES (1 - Tdap) 1957 PNEUMOCOCCAL VACCINE 50+ (1 of 1 - PCV) 1988 ZOSTER VACCINE (1 of 2) 1988 Respiratory Syncytial Virus (RSV) Vaccine Pt: or over 60 yrs (1 - 1-dose 75+ series) 2013 COVID-19 VACCINE ( - 2023-2 5 season) 2024 INFLUENZA VACCINE (#1) 2024 DEPRESSION SCREENING 07/12/2024 MEDICARE AWV CALENDAR YEAR 2024 HEPATITIS B VACCINE Aged Out No longe r eligible based on patient's age to complete this topic HIB VACCINE Aged Out No longer eligi ble based on patient's age to complete this topic HPV VACCINE Aged Out No longer eligi ble based on patient's age to complete this topic MENINGOCOCCAL (Group B) VACC INE SHARED DECISION-MAKING Aged Out No longer eligibl e based on patient's age to complete this topic MENINGOCOCCAL GROUPS A/C/Y/W VACCINE Aged Out No longer eligible b ased on patient's age to complete this topic Care Teams Screed Person Relationship Specialty Start Date End Date Michelet English DO [address] [address] PCP - General Internal Medicine 04/13/18 Doug Robledo MD [address] [address] Cardiology 09/24/14
--- OUTSIDE RECORDS SUMMARY | 2024-09-20 17:48 | XMS_ITS | Encounter Summary ---
Author Organization [facility] Address [address] [place] [address] Care Team Providers Care Alarm Installer Name Role Phone Marshall Renner MD Primary Care Provider [phone] Doug Robledo MD Unavailable [phone] Tony Yee MD Primary Care Provider [phone] Michelet English DO Primary Care Provider [phone] Encounter Details Date Type Department Care Team (Late st Contact Info) Description 11/27/2013 [facility] Outpatient Visit EXTERNAL NON-[facility] DEPT Marshall Renner MD [address] [place] [address] Social History Tobacco Use Types Packs/Day Years [...] on filedocumented in this encounter Care Teams Alarm Installer Relationship Specialty Start Date End Date Marshall Renner MD [address] [place] [address] PCP - General Internal Medicine 11/24/13 09/12/15 Tony Yee MD [address] [place] [address] PCP - General Internal Medicine 09/13/15 04/12/18 Michelet English DO [address] [place] [address] PCP - General Internal Medicine 04/13/18 Doug Robledo MD [address] [address] Cardiology 09/24/14 documented as of this encounter
== END 2024-09-20 16:14 | disposition home or self-care (01) ==
PROVIDERS: PCP Nurse Practitioner; Visit Provider Nurse Practitioner
DX: E55.9 Vitamin D deficiency, unspecified (principal); I10 Essential (primary) hypertension
CPT/HCPCS: 36415; 80053; 82306